=== PATIENT | male | born 1940 ===

== ENCOUNTER 2017-12-26 19:48 | Inpatient (IN) | payer MEDICARE ==
[2017-12-26 15:59] VITALS: BMI 29.2
[2017-12-26] MEDS ORDERED: Iodixanol 320 MG/ML 200 ML BOTTLE IV ONE (20:01)
[2017-12-26] MEDS ORDERED: Midazolam 2 MG/2 ML VIAL ONE (20:02)
[2017-12-26] MEDS ORDERED: DiphenhydrAMINE 50 mg/ml Inj ONE (20:05)
[2017-12-26] MEDS: Sodium Chloride 0.9% 1,000 ML IV SCH (21:46)
[2017-12-26 22:45] LABS: CK-MB 1.9 ng/mL (0.0-3.38); TROPONIN I 0.493 ng/mL (0.00-0.120)
--- NOTE | 2017-12-26 22:59 | CP.PCM.CON ---
History of Present Illness - History of Present Illness History of Present Illness: 77 M with h/o htn, CVA with slight right side weakness in 2017, h/o syncopal episodes while on beta heriberto, h/o prostate cancer on 3 month cystoscopy, presented to the [place] ER with c/o chest pain, with improved initially then got worse, repeat EKG showed inferior STEMI, patient transferred to the [facility], RCA 99% obstructed, and PCI done, patient also has some LAD and circumflex disease, normal EF. Patient has been pain and symptom free post cath , being observed in ICU. PMH as above PSH, appendicectomy, prostatectomy, hernia repair on left side Allergies PCN Social lives with family denies smoking, alcohol, illicit drugs Family history not contributory. Meds reviewed Review of Systems - Review of Systems All systems: reviewed and no additional remarkable complaints except (HPI) Past Patient History - Past Medical History & Family History Past Medical History?: Yes - Past Social History Smoking Status: Former Smoker Alcohol: Other (denies) Drugs: Denies Home Situation {Lives}: With Family - CARDIAC Hx Hypercholesterolemia: Yes Hx Hypertension: Yes - PULMONARY Hx Respiratory Disorders: No - NEUROLOGICAL Hx Neurological Disorder: No HX Cerebrovascular Accident: Yes (09/22/16) Hx Syncope: Yes (more than 3 months ago) Other/Comment: CVA 09/22/16 - HEENT Hx HEENT Problems: No Hx Glaucoma: Yes - RENAL Hx Chronic Kidney Disease: No Hx Kidney Stones: Yes (20-30 years ago) - ENDOCRINE/METABOLIC Hx Endocrine Disorders: No - HEMATOLOGICAL/ONCOLOGICAL Hx Anemia: Yes Hx Human Immunodeficiency Virus (HIV): No - INTEGUMENTARY Hx Dermatological Problems: No - MUSCULOSKELETAL/RHEUMATOLOGICAL Hx Falls: Yes - GASTROINTESTINAL Hx Gastrointestinal Disorders: No Other/Comment: Hernia surgery 3-4 yrs ago - GENITOURINARY/GYNECOLOGICAL Hx Prostate Cancer: Yes - PSYCHIATRIC Hx Psychophysiologic Disorder: No Hx Substance Use: No - SURGICAL HISTORY Hx Appendectomy: Yes - ANESTHESIA Hx Anesthesia: Yes Hx Anesthesia Reactions: No Hx Malignant Hyperthermia: No Meds Allergies/Adverse Reactions: Allergies Allergy/AdvReac Type Severity Reaction Status Date / Time Penicillins Allergy HEADACHE Verified 12/26/17 16:00 - Medications Medications: Current Medications Aspirin (Aspirin) 325 mg PO DAILY [facility] Carvedilol (Coreg) 6.25 mg PO BID [facility] Clopidogrel Bisulfate (Plavix) 75 mg PO DAILY [facility] Sodium Chloride (Sodium Chloride 0.9%) 1,000 mls @ 100 mls/hr IV .Q10H [facility] Last Admin: 12/26/17 21:46 Dose: 100 mls/hr Rosuvastatin Calcium (Crestor) 20 mg PO HS [facility] Last Admin: 12/26/17 21:46 Dose: 20 mg Physical Exam - Additional Findings Additional findings: * HEENT JB * Neck supple * Chest Clear * CVS Regular, no gallop, or rub * PA soft, nt, bs present * Ext, cath site on right no swelling or oozing, pulses, present b/l * [employer] alert oriented x3 no fnd * Skin normal turgor. Results - Labs Labs: Laboratory Results - last 24 hr 12/26/17 22:01 Total Creatine Kinase 59 Assessment & Plan - Assessment and Plan (Free Text) Assessment: * Inferior STEMI, s/p PCI in RCA, has some LAD and Cx disease, normal EF. * H/o CVA * H/o HTN * H/o prostate CA on treatment. Plan: * Guideline directed cardioprotective meds * ASA, plavix, coreg, crestor * Echo, lipid panel, labs * See orders for detail.
[2017-12-27 06:33] LABS: ALB/GLOB RATIO 1.5 (1.0-2.1); ALBUMIN 3.6 g/dL (3.5-5.0); ALT/SGPT 39 U/L (21-72); AST/SGOT 23 U/L (17-59); BLOOD UREA NITROGEN 18 mg/dL (9-20); CALCIUM 8.3 mg/dl (8.6-10.4); GFR AFRICAN-AMERICAN > 60; GFR NON-AFRICAN AMERICAN 58; HDL CHOLESTEROL 24 mg/dL (30-70)
[2017-12-27 06:35] LABS: BASO % 0.7 % (0.0-2.0); EOS # 0.2 K/uL (0.0-0.7); EOS % 3.8 % (0.0-4.0); HEMOGLOBIN 12.2 g/dL (12.0-18.0); LYMPH # 0.9 K/uL (1.0-4.3); LYMPH % 16.6 % (20.0-40.0); MEAN CELL VOLUME 87.1 fL (80.0-94.0); MEAN CORPUSCULAR HEMOGLOBIN 28.6 pg (27.0-31.0); MEAN CORPUSCULAR HGB CONC 32.9 g/dL (33.0-37.0); MEAN PLATELET VOLUME 8.9 fL (7.2-11.7); MONO # 0.5 K/uL (0.0-0.8); MONO % 9.2 % (0.0-10.0); NEUT # 3.6 K/uL (1.8-7.0); NEUT % 69.7 % (50.0-75.0); NRBC % 0.2 % (0.0-2.0); RBC 4.26 Mil/uL (4.40-5.90); RED CELL DISTRIBUTION WIDTH 15.7 % (11.5-14.5); WHITE BLOOD COUNT 5.2 K/uL (4.8-10.8)
[2017-12-27 06:43] LABS: LDL CHOLESTEROL 74 mg/dL (0-129)
[2017-12-27 06:53] LABS: CK-MB 2.18 ng/mL (0.0-3.38)
--- NOTE | 2017-12-27 07:38 | CP.CCUPN ---
<Yara Owens - Last Filed: 12/27/17 12:44> CCU Subjective - Physician Review Subjective (Free Text): Patient seen and examined at bedside. No acute complaints. Patient is tolerating diet, OOB to chair. CCU Objective - Vital Signs / Intake & Output Vital Signs (Last 4 hours): Vital Signs Temp Pulse Resp BP Pulse Ox 12/27/17 07:00 68 12 87 L 12/27/17 06:51 76 13 141/76 100 12/27/17 06:00 81 16 99 12/27/17 05:51 69 11 L 151/70 H 99 12/27/17 05:00 75 14 100 12/27/17 04:51 66 16 136/60 99 12/27/17 04:19 64 14 136/60 12/27/17 04:00 98.2 F 71 11 L 100 12/27/17 03:49 67 13 150/70 99 Intake and Output (Last 8hrs): Intake & Output 12/26/17 12/27/17 12/27/17 22:59 06:59 14:59 Intake Total 400 850 100 Output Total 300 600 Balance 100 250 100 Weight 197 lb 15.602 oz 196 lb 3.382 oz Intake: Intake, IV Amount 100 800 100 Left Antecubital 100 800 100 Oral 300 50 Output: Urine 300 600 Urine, Voided 300 600 Other: Voiding Method Urinal - Physical Exam Head: Positive for: Atraumatic, Normocephalic, Ecchymosis Extroacular Muscles: Positive for: EOMI Conjunctiva: Positive for: Normal Mouth: Positive for: Moist Mucous Membranes Neck: Positive for: Normal Range of Motion Respiratory/Chest: Positive for: Clear to Auscultation Cardiovascular: Positive for: Regular Rate and Rhythm Abdomen: Positive for: Normal Bowel Sounds. Negative for: Tenderness, Distention Upper Extremity: Positive for: Normal Inspection, NORMAL PULSES, Neurovascularly Intact, Capillary Refill < 2s Lower Extremity: Positive for: Normal Inspection, NORMAL PULSES, Neurovascularly Intact, Capillary Refill < 2 s Neurological: Positive for: GCS=15, CN II-XII Intact Skin: Positive for: Warm, Dry Psychiatric: Positive for: Alert, Oriented x 3, Normal Concentration - Medications Active Medications: Active Medications Generic Name Dose Route Start Last Admin Trade Name Freq PRN Reason Stop Dose Admin Acetaminophen 650 mg 12/27/17 07:34 Tylenol 325mg Tab PO Q6 PRN Pain, Mild (1-3) Aspirin 81 mg 12/27/17 10:00 Aspirin PO DAILY [facility] Carvedilol 6.25 mg 12/27/17 10:00 Coreg PO BID [facility] Clopidogrel Bisulfate 75 mg 12/27/17 10:00 Plavix PO DAILY [facility] Heparin Sodium (Porcine) 5,000 units 12/27/17 14:00 Heparin SC Q8 [facility] Sodium Chloride 1,000 mls @ 100 mls/hr 12/26/17 21:30 12/26/17 21:46 Sodium Chloride 0.9% IV 12/27/17 13:31 100 mls/hr .Q10H [facility] Administration Pantoprazole Sodium 40 mg 12/27/17 10:00 Protonix Ec Tab PO DAILY [facility] Rosuvastatin Calcium 20 mg 12/26/17 22:00 12/26/17 21:46 Crestor PO 20 mg HS [facility]A Administration - Patient Studies Lab Studies: Lab Studies 12/27/17 12/27/17 12/26/17 Range/Units 06:24 06:14 22:01 WBC 5.2 (4.8-10.8) K/uL RBC 4.26 L (4.40-5.90) Mil/uL Hgb 12.2 (12.0-18.0) g/dL Hct 37.1 (35.0-51.0) % MCV 87.1 (80.0-94.0) fL MCH 28.6 (27.0-31.0) pg MCHC 32.9 L (33.0-37.0) g/dL RDW 15.7 H (11.5-14.5) % Plt Count 188 (130-400) K/uL MPV 8.9 (7.2-11.7) fL Neut % (Auto) 69.7 (50.0-75.0) % Lymph % (Auto) 16.6 L (20.0-40.0) % Harris % (Auto) 9.2 (0.0-10.0) % Eos % (Auto) 3.8 (0.0-4.0) % Baso % (Auto) 0.7 (0.0-2.0) % Neut # (Auto) 3.6 (1.8-7.0) K/uL Lymph # (Auto) 0.9 L (1.0-4.3) K/uL Harris # (Auto) 0.5 (0.0-0.8) K/uL Eos # (Auto) 0.2 (0.0-0.7) K/uL Baso # (Auto) 0.0 (0.0-0.2) K/uL Sodium 142 (132-148) mmol/L Potassium 4.1 (3.6-5.2) mmol/L Chloride 108 H (98-107) mmol/L Carbon Dioxide 27 (22-30) mmol/L Anion Gap 12 (10-20) BUN 18 (9-20) mg/dL Creatinine 1.2 (0.8-1.5) mg/dL Est GFR ( Amer) > 60 Est GFR (Non-Af Amer) 58 Random Glucose 83 (75-110) mg/dL Calcium 8.3 L (8.6-10.4) mg/dl Total Bilirubin 0.7 (0.2-1.3) mg/dL AST 23 (17-59) U/L ALT 39 (21-72) U/L Alkaline Phosphatase 80 (38-126) U/L Total Creatine Kinase 59 (55-170) U/L CK-MB (Mass) 2.18 1.90 (0.0-3.38) ng/mL Troponin I 0.6540 H* 0.4930 H* (0.00-0.120) ng/mL Total Protein 5.9 L (6.3-8.3) g/dL Albumin 3.6 (3.5-5.0) g/dL Globulin 2.3 (2.2-3.9) gm/dL Albumin/Globulin Ratio 1.5 (1.0-2.1) Triglycerides 165 H (0-149) mg/dL Cholesterol 122 (0-199) mg/dL LDL Cholesterol Direct 74 (0-129) mg/dL HDL Cholesterol 24 L (30-70) mg/dL Laboratory Results - last 24 hr 12/26/17 12/27/17 12/27/17 22:01 06:14 06:24 WBC 5.2 RBC 4.26 L Hgb 12.2 Hct 37.1 MCV 87.1 MCH 28.6 MCHC 32.9 L RDW 15.7 H Plt Count 188 MPV 8.9 Neut % (Auto) 69.7 Lymph % (Auto) 16.6 L Harris % (Auto) 9.2 Eos % (Auto) 3.8 Baso % (Auto) 0.7 Neut # (Auto) 3.6 Lymph # (Auto) 0.9 L Harris # (Auto) 0.5 Eos # (Auto) 0.2 Baso # (Auto) 0.0 Sodium 142 Potassium 4.1 Chloride 108 H Carbon Dioxide 27 Anion Gap 12 BUN 18 Creatinine 1.2 Est GFR ( Amer) > 60 Est GFR (Non-Af Amer) 58 Random Glucose 83 Calcium 8.3 L Total Bilirubin 0.7 AST 23 ALT 39 Alkaline Phosphatase 80 Total Creatine Kinase 59 CK-MB (Mass) 1.90 2.18 Troponin I 0.4930 H* 0.6540 H* Total Protein 5.9 L Albumin 3.6 Globulin 2.3 Albumin/Globulin Ratio 1.5 Triglycerides 165 H Cholesterol 122 LDL Cholesterol Direct 74 HDL Cholesterol 24 L Critical Care Progress Note - Nutrition Nutrition: Nutrition Category Date Time Status Heart Healthy Diet [DIET] Diets 12/26/17 Breakfast Active Assessment/Plan - Assessment and Plan (Free Text) Assessment: This is a 77 year old male with PMHx of HTN, CVA with residual weakness, h/o syncopal episodes while on beta heriberto, h/o prostate cancer on 3 month cystoscopy, presented to the [place] ER with c/o chest pain, with improved initially then got worse, repeat EKG showed inferior STEMI. Patient also has LAD and Left Circumflex disease will need to have intervention performed in [place] 12/28/17. Plan: Neuro: GCS 15 A: Hx CVA with residual weakness Cardio: A: STEMI, inferior wall -- Dr. Troncoso - S/P PCI 100% RCA, with LAD and Left circumflex - Pending ECHO - Patient is to be transferred to [place] for PCI intervention 12/28/17 - Started ASA, Plavix, Coreg, Crestor Pulm: - No acute issues GI: - No acute issues : A: Hx Prostate Cancer Prophylaxis: - Pepcid - SCDs, Hep Q8H - PT Eval Disposition: Patient s/p cardiac cath with ARABELLA placement in RCA. Transfer to [place] 12/28/17 for PCI intervention. Patient will return to [facility]. Yara Etienne Dr., DO, PGY-1 <Renzo Zamarripa S - Last Filed: 12/27/17 17:56> CCU Objective - Vital Signs / Intake & Output Vital Signs (Last 4 hours): Vital Signs Pulse Resp BP Pulse Ox 12/27/17 17:51 73 14 130/58 L 12/27/17 17:00 72 14 12/27/17 16:00 67 18 99 12/27/17 15:51 69 16 152/68 H 99 12/27/17 15:00 67 16 100 12/27/17 14:51 71 17 141/55 L 100 12/27/17 14:00 68 16 100 Intake and Output (Last 8hrs): Intake & Output 12/27/17 12/27/17 12/27/17 06:59 14:59 22:59 Intake Total 850 1060 Output Total 600 520 Balance 250 540 Weight 196 lb 3.382 oz Intake: Intake, IV Amount 800 600 Left Antecubital 800 600 Oral 50 460 Output: Urine 600 520 Urine, Voided 600 520 Stool 0 Emesis 0 Other: # Bowel Movements 0 - Medications Active Medications: Active Medications Generic Name Dose Route Start Last Admin Trade Name Freq PRN Reason Stop Dose Admin Acetaminophen 650 mg 12/27/17 07:34 Tylenol 325mg Tab PO Q6 PRN Pain, Mild (1-3) Aspirin 81 mg 12/27/17 11:30 12/27/17 11:00 Ecotrin PO Not Given DAILY [facility] Carvedilol 6.25 mg 12/27/17 10:00 12/27/17 11:07 Coreg PO 6.25 mg BID [facility] Administration Clopidogrel Bisulfate 75 mg 12/28/17 10:00 Plavix PO DAILY [facility] Famotidine 20 mg 12/27/17 10:00 12/27/17 11:07 Pepcid PO 20 mg DAILY [facility] Administration Heparin Sodium (Porcine) 5,000 units 12/27/17 14:00 12/27/17 15:08 Heparin SC 5,000 units Q8 [facility] Administration Metoprolol Succinate 12.5 mg 12/28/17 10:00 Toprol Xl PO DAILY [facility] Rosuvastatin Calcium 20 mg 12/26/17 22:00 12/26/17 21:46 Crestor PO 20 mg HS [facility] Administration - Patient Studies Lab Studies: Lab Studies 12/27/17 12/27/17 12/27/17 Range/Units 06:24 06:24 06:14 WBC 5.2 (4.8-10.8) K/uL RBC 4.26 L (4.40-5.90) Mil/uL Hgb 12.2 (12.0-18.0) g/dL Hct 37.1 (35.0-51.0) % MCV 87.1 (80.0-94.0) fL MCH 28.6 (27.0-31.0) pg MCHC 32.9 L (33.0-37.0) g/dL RDW 15.7 H (11.5-14.5) % Plt Count 188 (130-400) K/uL MPV 8.9 (7.2-11.7) fL Neut % (Auto) 69.7 (50.0-75.0) % Lymph % (Auto) 16.6 L (20.0-40.0) % Harris % (Auto) 9.2 (0.0-10.0) % Eos % (Auto) 3.8 (0.0-4.0) % Baso % (Auto) 0.7 (0.0-2.0) % Neut # (Auto) 3.6 (1.8-7.0) K/uL Lymph # (Auto) 0.9 L (1.0-4.3) K/uL Harris # (Auto) 0.5 (0.0-0.8) K/uL Eos # (Auto) 0.2 (0.0-0.7) K/uL Baso # (Auto) 0.0 (0.0-0.2) K/uL Sodium 142 (132-148) mmol/L Potassium 4.1 (3.6-5.2) mmol/L Chloride 108 H (98-107) mmol/L Carbon Dioxide 27 (22-30) mmol/L Anion Gap 12 (10-20) BUN 18 (9-20) mg/dL Creatinine 1.2 (0.8-1.5) mg/dL Est GFR ( Amer) > 60 Est GFR (Non-Af Amer) 58 Random Glucose 83 (75-110) mg/dL Hemoglobin A1c 5.6 (4.2-6.5) % Calcium 8.3 L (8.6-10.4) mg/dl Total Bilirubin 0.7 (0.2-1.3) mg/dL AST 23 (17-59) U/L ALT 39 (21-72) U/L Alkaline Phosphatase 80 (38-126) U/L Total Creatine Kinase (55-170) U/L CK-MB (Mass) 2.18 (0.0-3.38) ng/mL Troponin I 0.6540 H* (0.00-0.120) ng/mL Total Protein 5.9 L (6.3-8.3) g/dL Albumin 3.6 (3.5-5.0) g/dL Globulin 2.3 (2.2-3.9) gm/dL Albumin/Globulin Ratio 1.5 (1.0-2.1) Triglycerides 165 H (0-149) mg/dL Cholesterol 122 (0-199) mg/dL LDL Cholesterol Direct 74 (0-129) mg/dL HDL Cholesterol 24 L (30-70) mg/dL 12/26/17 Range/Units 22:01 WBC (4.8-10.8) K/uL RBC (4.40-5.90) Mil/uL Hgb (12.0-18.0) g/dL Hct (35.0-51.0) % MCV (80.0-94.0) fL MCH (27.0-31.0) pg MCHC (33.0-37.0) g/dL RDW (11.5-14.5) % Plt Count (130-400) K/uL MPV (7.2-11.7) fL Neut % (Auto) (50.0-75.0) % Lymph % (Auto) (20.0-40.0) % Harris % (Auto) (0.0-10.0) % Eos % (Auto) (0.0-4.0) % Baso % (Auto) (0.0-2.0) % Neut # (Auto) (1.8-7.0) K/uL Lymph # (Auto) (1.0-4.3) K/uL Harris # (Auto) (0.0-0.8) K/uL Eos # (Auto) (0.0-0.7) K/uL Baso # (Auto) (0.0-0.2) K/uL Sodium (132-148) mmol/L Potassium (3.6-5.2) mmol/L Chloride (98-107) mmol/L Carbon Dioxide (22-30) mmol/L Anion Gap (10-20) BUN (9-20) mg/dL Creatinine (0.8-1.5) mg/dL Est GFR ( Amer) Est GFR (Non-Af Amer) Random Glucose (75-110) mg/dL Hemoglobin A1c (4.2-6.5) % Calcium (8.6-10.4) mg/dl Total Bilirubin (0.2-1.3) mg/dL AST (17-59) U/L ALT (21-72) U/L Alkaline Phosphatase (38-126) U/L Total Creatine Kinase 59 (55-170) U/L CK-MB (Mass) 1.90 (0.0-3.38) ng/mL Troponin I 0.4930 H* (0.00-0.120) ng/mL Total Protein (6.3-8.3) g/dL Albumin (3.5-5.0) g/dL Globulin (2.2-3.9) gm/dL Albumin/Globulin Ratio (1.0-2.1) Triglycerides (0-149) mg/dL Cholesterol (0-199) mg/dL LDL Cholesterol Direct (0-129) mg/dL HDL Cholesterol (30-70) mg/dL Laboratory Results - last 24 hr 12/26/17 12/27/17 12/27/17 22:01 06:14 06:24 WBC 5.2 RBC 4.26 L Hgb 12.2 Hct 37.1 MCV 87.1 MCH 28.6 MCHC 32.9 L RDW 15.7 H Plt Count 188 MPV 8.9 Neut % (Auto) 69.7 Lymph % (Auto) 16.6 L Harris % (Auto) 9.2 Eos % (Auto) 3.8 Baso % (Auto) 0.7 Neut # (Auto) 3.6 Lymph # (Auto) 0.9 L Harris # (Auto) 0.5 Eos # (Auto) 0.2 Baso # (Auto) 0.0 Sodium 142 Potassium 4.1 Chloride 108 H Carbon Dioxide 27 Anion Gap 12 BUN 18 Creatinine 1.2 Est GFR ( Amer) > 60 Est GFR (Non-Af Amer) 58 Random Glucose 83 Hemoglobin A1c Calcium 8.3 L Total Bilirubin 0.7 AST 23 ALT 39 Alkaline Phosphatase 80 Total Creatine Kinase 59 CK-MB (Mass) 1.90 2.18 Troponin I 0.4930 H* 0.6540 H* Total Protein 5.9 L Albumin 3.6 Globulin 2.3 Albumin/Globulin Ratio 1.5 Triglycerides 165 H Cholesterol 122 LDL Cholesterol Direct 74 HDL Cholesterol 24 L 12/27/17 06:24 WBC RBC Hgb Hct MCV MCH MCHC RDW Plt Count MPV Neut % (Auto) Lymph % (Auto) Harris % (Auto) Eos % (Auto) Baso % (Auto) Neut # (Auto) Lymph # (Auto) Harris # (Auto) Eos # (Auto) Baso # (Auto) Sodium Potassium Chloride Carbon Dioxide Anion Gap BUN Creatinine Est GFR ( Amer) Est GFR (Non-Af Amer) Random Glucose Hemoglobin A1c 5.6 Calcium Total Bilirubin AST ALT Alkaline Phosphatase Total Creatine Kinase CK-MB (Mass) Troponin I Total Protein Albumin Globulin Albumin/Globulin Ratio Triglycerides Cholesterol LDL Cholesterol Direct HDL Cholesterol Critical Care Progress Note - Nutrition Nutrition: Nutrition Category Date Time Status Heart Healthy Diet [DIET] Diets 12/26/17 Breakfast Active Heart Healthy Diet [DIET] Diets 12/28/17 Dinner Active NPO Diet [DIET] Diets 12/28/17 Breakfast Active Attending/Attestation - Attestation I have personally seen and examined this patient.: Yes I have fully participated in the care of the patient.: Yes I have reviewed all pertinent clinical information: Yes Notes (Text): 12/27/17 17:55 Patient seen and examined in the intensive care unit. Status post cardiac cath 100% occlusion of RCA and stent placement patient for transfer to [place] tomorrow for PCI of circumflex and LAD
[2017-12-27] MEDS: Sodium Chloride 0.9% 1,000 ML IV SCH (08:00)
--- NOTE | 2017-12-27 12:28 | CP.PCM.HP ---
History of Present Illness - History of Present Illness History of Present Illness: Patient 77 y/o gentleman with hx of CAD, s/p CVA with minimal residual, ca prostate. The patient presented in PMD office with hx of precordial CP x 2 days , SOB, anxiety, palpitation. The patient was transferred to ER by EMS. He presented with acute coronary syndrome. He underwent to cardiac cath that reveled a severe stenosis. At present in CCU. Patient will need further dx and rx intervention. Case discussed with office specialist. Present on Admission - Present on Admission Any Indicators Present on Admission: No Review of Systems - Constitutional Constitutional: As Per HPI - EENT Eyes: As Per HPI Nose/Mouth/Throat: As Per HPI - Cardiovascular Cardiovascular: Chest Pain, Chest Pain at Rest, Chest Pain with Activity, Dyspnea, Rapid Heart Rate - Respiratory Respiratory: Dyspnea on Exertion - Gastrointestinal Gastrointestinal: As Per HPI - Genitourinary Genitourinary: As Per HPI - Musculoskeletal Musculoskeletal: As Per HPI - Neurological Neurological: As Per HPI - Psychiatric Psychiatric: As Per HPI - Endocrine Endocrine: As Per HPI Past Patient History - Past Medical History & Family History Past Medical History?: Yes - Past Social History Smoking Status: Former Smoker Alcohol: Other (denies) Drugs: Denies Home Situation {Lives}: With Family - CARDIAC Hx Hypercholesterolemia: Yes Hx Hypertension: Yes - PULMONARY Hx Respiratory Disorders: No - NEUROLOGICAL Hx Neurological Disorder: No HX Cerebrovascular Accident: Yes (09/22/16) Hx Syncope: Yes (more than 3 months ago) Other/Comment: CVA 09/22/16 - HEENT Hx HEENT Problems: No Hx Glaucoma: Yes - RENAL Hx Chronic Kidney Disease: No Hx Kidney Stones: Yes (20-30 years ago) - ENDOCRINE/METABOLIC Hx Endocrine Disorders: No - HEMATOLOGICAL/ONCOLOGICAL Hx Anemia: Yes Hx Human Immunodeficiency Virus (HIV): No - INTEGUMENTARY Hx Dermatological Problems: No - MUSCULOSKELETAL/RHEUMATOLOGICAL Hx Falls: Yes - GASTROINTESTINAL Hx Gastrointestinal Disorders: No Other/Comment: Hernia surgery 3-4 yrs ago - GENITOURINARY/GYNECOLOGICAL Hx Prostate Cancer: Yes - PSYCHIATRIC Hx Psychophysiologic Disorder: No Hx Substance Use: No - SURGICAL HISTORY Hx Appendectomy: Yes - ANESTHESIA Hx Anesthesia: Yes Hx Anesthesia Reactions: No Hx Malignant Hyperthermia: No Meds Allergies/Adverse Reactions: Allergies Allergy/AdvReac Type Severity Reaction Status Date / Time Penicillins Allergy HEADACHE Verified 12/26/17 16:00 Physical Exam - Constitutional Appears: Chronically Ill - Head Exam Head Exam: ATRAUMATIC, NORMAL INSPECTION, NORMOCEPHALIC - Eye Exam Eye Exam: Normal appearance - ENT Exam ENT Exam: Mucous Membranes Moist - Respiratory Exam Respiratory Exam: Clear to Auscultation Bilateral - Cardiovascular Exam Cardiovascular Exam: REGULAR RHYTHM, +S1, +S2 - GI/Abdominal Exam GI & Abdominal Exam: Normal Bowel Sounds - Neurological Exam Neurological exam: Alert, CN II-XII Intact, Oriented x3, Reflexes Normal - Psychiatric Exam Psychiatric exam: Normal Affect - Skin Skin Exam: Normal Color Results - Vital Signs Recent Vital Signs: Last Vital Signs Temp 98.3 F 12/27/17 07:35 Pulse 67 12/27/17 12:00 Resp 13 12/27/17 12:00 BP 157/70 H 12/27/17 09:52 Pulse Ox 99 12/27/17 12:00 - Labs Result Diagrams: 12/27/17 06:24 12/27/17 06:14 Labs: Laboratory Results - last 24 hr 12/26/17 12/27/17 12/27/17 22:01 06:14 06:24 WBC 5.2 RBC 4.26 L Hgb 12.2 Hct 37.1 MCV 87.1 MCH 28.6 MCHC 32.9 L RDW 15.7 H Plt Count 188 MPV 8.9 Neut % (Auto) 69.7 Lymph % (Auto) 16.6 L Warren % (Auto) 9.2 Eos % (Auto) 3.8 Baso % (Auto) 0.7 Neut # (Auto) 3.6 Lymph # (Auto) 0.9 L Warren # (Auto) 0.5 Eos # (Auto) 0.2 Baso # (Auto) 0.0 Sodium 142 Potassium 4.1 Chloride 108 H Carbon Dioxide 27 Anion Gap 12 BUN 18 Creatinine 1.2 Est GFR ( Amer) > 60 Est GFR (Non-Af Amer) 58 Random Glucose 83 Hemoglobin A1c Calcium 8.3 L Total Bilirubin 0.7 AST 23 ALT 39 Alkaline Phosphatase 80 Total Creatine Kinase 59 CK-MB (Mass) 1.90 2.18 Troponin I 0.4930 H* 0.6540 H* Total Protein 5.9 L Albumin 3.6 Globulin 2.3 Albumin/Globulin Ratio 1.5 Triglycerides 165 H Cholesterol 122 LDL Cholesterol Direct 74 HDL Cholesterol 24 L 12/27/17 06:24 WBC RBC Hgb Hct MCV MCH MCHC RDW Plt Count MPV Neut % (Auto) Lymph % (Auto) Warren % (Auto) Eos % (Auto) Baso % (Auto) Neut # (Auto) Lymph # (Auto) Warren # (Auto) Eos # (Auto) Baso # (Auto) Sodium Potassium Chloride Carbon Dioxide Anion Gap BUN Creatinine Est GFR ( Amer) Est GFR (Non-Af Amer) Random Glucose Hemoglobin A1c 5.6 Calcium Total Bilirubin AST ALT Alkaline Phosphatase Total Creatine Kinase CK-MB (Mass) Troponin I Total Protein Albumin Globulin Albumin/Globulin Ratio Triglycerides Cholesterol LDL Cholesterol Direct HDL Cholesterol Assessment & Plan (1) Coronary arteriosclerosis Status: Acute (2) STEMI (ST elevation myocardial infarction) Status: Acute (3) Hypertension Status: Acute (4) Combined hyperlipidemia Status: Acute - Assessment and Plan (Free Text) Plan: Will follow cardio consult Continue present rx.
--- NOTE | 2017-12-27 17:27 | CP.PCM.CON ---
History of Present Illness - History of Present Illness History of Present Illness: Patient with history of CAD, PAD, CVA and hyperlipidemia who was in [place] when he started having chest pain. He ignored and on the day of admission he worked in the yard and chest pain got worse. Hid family forced him to [facility] eto ER at [place] and where he was treated accordingly. He had EKG with dynamic changes and was transferred for cath and intervention at [facility]. He has double vessel disease and angioplasty with Stent of the large and dominant RCA was performed. Past Patient History - Past Medical History & Family History Past Medical History?: Yes - Past Social History Smoking Status: Former Smoker Alcohol: Other (denies) Drugs: Denies Home Situation {Lives}: With Family - CARDIAC Hx Cardiac Disorders: Yes (CABG, CAD) Hx Hypercholesterolemia: Yes Hx Hypertension: Yes - PULMONARY Hx Respiratory Disorders: No - NEUROLOGICAL HX Cerebrovascular Accident: Yes (09/22/16) - HEENT Hx HEENT Problems: No Hx Glaucoma: Yes - RENAL Hx Chronic Kidney Disease: No Hx Kidney Stones: Yes (20-30 years ago) - ENDOCRINE/METABOLIC Hx Endocrine Disorders: No - HEMATOLOGICAL/ONCOLOGICAL Hx Anemia: Yes Hx Human Immunodeficiency Virus (HIV): No - INTEGUMENTARY Hx Dermatological Problems: No - MUSCULOSKELETAL/RHEUMATOLOGICAL Hx Falls: Yes - GASTROINTESTINAL Hx Gastrointestinal Disorders: No Other/Comment: Hernia surgery 3-4 yrs ago - GENITOURINARY/GYNECOLOGICAL Hx Prostate Cancer: Yes - PSYCHIATRIC Hx Psychophysiologic Disorder: No Hx Substance Use: No - SURGICAL HISTORY Hx Appendectomy: Yes - ANESTHESIA Hx Anesthesia: Yes Hx Anesthesia Reactions: No Hx Malignant Hyperthermia: No Meds Allergies/Adverse Reactions: Allergies Allergy/AdvReac Type Severity Reaction Status Date / Time Penicillins Allergy HEADACHE Verified 12/26/17 16:00 - Medications Medications: Current Medications Acetaminophen (Tylenol 325mg Tab) 650 mg PO Q6 PRN PRN Reason: Pain, Mild (1-3) Aspirin (Ecotrin) 81 mg PO DAILY [facility] Last Admin: 12/27/17 11:00 Dose: Not Given Carvedilol (Coreg) 6.25 mg PO BID [facility] Last Admin: 12/27/17 11:07 Dose: 6.25 mg Clopidogrel Bisulfate (Plavix) 75 mg PO DAILY [facility] Last Admin: 12/27/17 11:07 Dose: 75 mg Famotidine (Pepcid) 20 mg PO DAILY [facility] Last Admin: 12/27/17 11:07 Dose: 20 mg Heparin Sodium (Porcine) (Heparin) 5,000 units SC Q8 [facility] Last Admin: 12/27/17 15:08 Dose: 5,000 units Rosuvastatin Calcium (Crestor) 20 mg PO HS [facility] Last Admin: 12/26/17 21:46 Dose: 20 mg Physical Exam - Head Exam Head Exam: NORMOCEPHALIC - Neck Exam Neck exam: Positive for: Normal Inspection - Respiratory Exam Respiratory Exam: NORMAL BREATHING PATTERN - Cardiovascular Exam Cardiovascular Exam: REGULAR RHYTHM - GI/Abdominal Exam GI & Abdominal Exam: Soft - Back Exam Back exam: NORMAL INSPECTION - Neurological Exam Neurological exam: Alert, Oriented x3 Results - Vital Signs Recent Vital Signs: Last Vital Signs Temp 98.3 F 12/27/17 07:35 Pulse 67 12/27/17 12:00 Resp 13 12/27/17 12:00 BP 157/70 H 12/27/17 09:52 Pulse Ox 99 12/27/17 12:00 - Labs Result Diagrams: 12/27/17 06:24 12/27/17 06:14 Labs: Laboratory Results - last 24 hr 12/26/17 12/27/17 12/27/17 22:01 06:14 06:24 WBC 5.2 RBC 4.26 L Hgb 12.2 Hct 37.1 MCV 87.1 MCH 28.6 MCHC 32.9 L RDW 15.7 H Plt Count 188 MPV 8.9 Neut % (Auto) 69.7 Lymph % (Auto) 16.6 L Norman % (Auto) 9.2 Eos % (Auto) 3.8 Baso % (Auto) 0.7 Neut # (Auto) 3.6 Lymph # (Auto) 0.9 L Norman # (Auto) 0.5 Eos # (Auto) 0.2 Baso # (Auto) 0.0 Sodium 142 Potassium 4.1 Chloride 108 H Carbon Dioxide 27 Anion Gap 12 BUN 18 Creatinine 1.2 Est GFR ( Amer) > 60 Est GFR (Non-Af Amer) 58 Random Glucose 83 Hemoglobin A1c Calcium 8.3 L Total Bilirubin 0.7 AST 23 ALT 39 Alkaline Phosphatase 80 Total Creatine Kinase 59 CK-MB (Mass) 1.90 2.18 Troponin I 0.4930 H* 0.6540 H* Total Protein 5.9 L Albumin 3.6 Globulin 2.3 Albumin/Globulin Ratio 1.5 Triglycerides 165 H Cholesterol 122 LDL Cholesterol Direct 74 HDL Cholesterol 24 L 12/27/17 06:24 WBC RBC Hgb Hct MCV MCH MCHC RDW Plt Count MPV Neut % (Auto) Lymph % (Auto) Norman % (Auto) Eos % (Auto) Baso % (Auto) Neut # (Auto) Lymph # (Auto) Norman # (Auto) Eos # (Auto) Baso # (Auto) Sodium Potassium Chloride Carbon Dioxide Anion Gap BUN Creatinine Est GFR ( Amer) Est GFR (Non-Af Amer) Random Glucose Hemoglobin A1c 5.6 Calcium Total Bilirubin AST ALT Alkaline Phosphatase Total Creatine Kinase CK-MB (Mass) Troponin I Total Protein Albumin Globulin Albumin/Globulin Ratio Triglycerides Cholesterol LDL Cholesterol Direct HDL Cholesterol Assessment & Plan (1) Combined hyperlipidemia Assessment and Plan: Continue lipid lowering agents. Status: Acute (2) STEMI (ST elevation myocardial infarction) Assessment and Plan: Successful PTCA/Stent of RCA. He has double vessel disease. Plans for PCI of RCA in AM. Discussed with patient, family and resident. Continue DAPT. Status: Acute (3) Cerebrovascular accident Assessment and Plan: Monitor. Risk of DAPT were discussed with family. Status: Acute
[2017-12-28 06:11] LABS: BASO % 0.6 % (0.0-2.0); EOS # 0.2 K/uL (0.0-0.7); EOS % 3.2 % (0.0-4.0); HEMOGLOBIN 12.5 g/dL (12.0-18.0); LYMPH # 0.8 K/uL (1.0-4.3); LYMPH % 13.3 % (20.0-40.0); MEAN CELL VOLUME 86.5 fL (80.0-94.0); MEAN CORPUSCULAR HEMOGLOBIN 29.2 pg (27.0-31.0); MEAN CORPUSCULAR HGB CONC 33.7 g/dL (33.0-37.0); MONO # 0.7 K/uL (0.0-0.8); MONO % 10.8 % (0.0-10.0); NEUT # 4.4 K/uL (1.8-7.0); NEUT % 72.1 % (50.0-75.0); RBC 4.29 Mil/uL (4.40-5.90); RED CELL DISTRIBUTION WIDTH 14.9 % (11.5-14.5); WHITE BLOOD COUNT 6.1 K/uL (4.8-10.8)
[2017-12-28 06:31] LABS: ALB/GLOB RATIO 1.4 (1.0-2.1); ALBUMIN 3.7 g/dL (3.5-5.0); ALT/SGPT 29 U/L (21-72); AST/SGOT 28 U/L (17-59); BLOOD UREA NITROGEN 20 mg/dL (9-20); CALCIUM 8.6 mg/dl (8.6-10.4); GFR AFRICAN-AMERICAN > 60; GFR NON-AFRICAN AMERICAN > 60
[2017-12-28] MEDS: Metoprolol Succinate 12.5 mg XL Tab PO SCH (10:00)
--- NOTE | 2017-12-28 11:11 | CP.CCUPN ---
<Yara Owens - Last Filed: 12/28/17 11:09> CCU Subjective - Physician Review Subjective (Free Text): Patient seen and examined at bedside. No acute complaints. Patient is to be transferred to [place] for PCI placement, will return to [facility]. CCU Objective - Vital Signs / Intake & Output Vital Signs (Last 4 hours): Vital Signs Pulse Resp BP Pulse Ox 12/28/17 08:00 68 15 97 12/28/17 07:52 86 11 L 160/75 H 98 Intake and Output (Last 8hrs): Intake & Output 12/27/17 12/28/17 12/28/17 22:59 06:59 14:59 Intake Total 690 0 0 Output Total 1020 1100 200 Balance -330 -1100 -200 Weight 190 lb 4.143 oz Intake: Intake, IV Amount 100 Left Antecubital 100 Oral 590 0 0 Output: Urine 1020 1100 200 Urine, Voided 1020 1100 200 Stool 0 Emesis 0 0 Other: # Bowel Movements 0 1 - Physical Exam Head: Positive for: Atraumatic, Normocephalic, Ecchymosis Extroacular Muscles: Positive for: EOMI Conjunctiva: Positive for: Normal Mouth: Positive for: Moist Mucous Membranes Neck: Positive for: Normal Range of Motion Respiratory/Chest: Positive for: Clear to Auscultation Cardiovascular: Positive for: Regular Rate and Rhythm Abdomen: Positive for: Normal Bowel Sounds. Negative for: Tenderness, Distention Upper Extremity: Positive for: Normal Inspection, NORMAL PULSES, Neurovascularly Intact, Capillary Refill < 2s Lower Extremity: Positive for: Normal Inspection, NORMAL PULSES, Neurovascularly Intact, Capillary Refill < 2 s Neurological: Positive for: GCS=15, CN II-XII Intact Skin: Positive for: Warm, Dry Psychiatric: Positive for: Alert, Oriented x 3, Normal Concentration - Medications Active Medications: Active Medications Generic Name Dose Route Start Last Admin Trade Name Freq PRN Reason Stop Dose Admin Acetaminophen 650 mg 12/27/17 07:34 Tylenol 325mg Tab PO Q6 PRN Pain, Mild (1-3) Aspirin 81 mg 12/27/17 11:30 12/27/17 11:00 Ecotrin PO Not Given DAILY [facility] Carvedilol 6.25 mg 12/27/17 10:00 12/27/17 18:08 Coreg PO 6.25 mg BID [facility] Administration Clopidogrel Bisulfate 75 mg 12/28/17 10:00 Plavix PO DAILY [facility] Famotidine 20 mg 12/27/17 10:00 12/27/17 11:07 Pepcid PO 20 mg DAILY [facility] Administration Heparin Sodium (Porcine) 5,000 units 12/27/17 14:00 12/27/17 21:33 Heparin SC 5,000 units Q8 [facility] Administration Metoprolol Succinate 12.5 mg 12/28/17 10:00 Toprol Xl PO DAILY [facility] Rosuvastatin Calcium 20 mg 12/26/17 22:00 12/27/17 21:33 Crestor PO 20 mg HS [facility] Administration - Patient Studies Lab Studies: Microbiology Studies 12/26/17 22:28 MRSA Culture (Admit) - Final Naris MRSA NOT DETECTED Lab Studies 12/28/17 12/28/17 Range/Units 05:56 05:56 WBC 6.1 (4.8-10.8) K/uL RBC 4.29 L (4.40-5.90) Mil/uL Hgb 12.5 (12.0-18.0) g/dL Hct 37.1 (35.0-51.0) % MCV 86.5 (80.0-94.0) fL MCH 29.2 (27.0-31.0) pg MCHC 33.7 (33.0-37.0) g/dL RDW 14.9 H (11.5-14.5) % Plt Count 175 (130-400) K/uL MPV 9.0 (7.2-11.7) fL Neut % (Auto) 72.1 (50.0-75.0) % Lymph % (Auto) 13.3 L (20.0-40.0) % Gooding % (Auto) 10.8 H (0.0-10.0) % Eos % (Auto) 3.2 (0.0-4.0) % Baso % (Auto) 0.6 (0.0-2.0) % Neut # (Auto) 4.4 (1.8-7.0) K/uL Lymph # (Auto) 0.8 L (1.0-4.3) K/uL Gooding # (Auto) 0.7 (0.0-0.8) K/uL Eos # (Auto) 0.2 (0.0-0.7) K/uL Baso # (Auto) 0.0 (0.0-0.2) K/uL Sodium 141 (132-148) mmol/L Potassium 4.0 (3.6-5.2) mmol/L Chloride 106 (98-107) mmol/L Carbon Dioxide 24 (22-30) mmol/L Anion Gap 15 (10-20) BUN 20 (9-20) mg/dL Creatinine 1.1 (0.8-1.5) mg/dL Est GFR ( Amer) > 60 Est GFR (Non-Af Amer) > 60 Random Glucose 94 (75-110) mg/dL Calcium 8.6 (8.6-10.4) mg/dl Phosphorus 3.2 (2.5-4.5) mg/dL Magnesium 1.9 (1.6-2.3) mg/dL Total Bilirubin 0.8 (0.2-1.3) mg/dL AST 28 (17-59) U/L ALT 29 (21-72) U/L Alkaline Phosphatase 81 (38-126) U/L Total Protein 6.4 (6.3-8.3) g/dL Albumin 3.7 (3.5-5.0) g/dL Globulin 2.7 (2.2-3.9) gm/dL Albumin/Globulin Ratio 1.4 (1.0-2.1) Laboratory Results - last 24 hr 12/28/17 12/28/17 05:56 05:56 WBC 6.1 RBC 4.29 L Hgb 12.5 Hct 37.1 MCV 86.5 MCH 29.2 MCHC 33.7 RDW 14.9 H Plt Count 175 MPV 9.0 Neut % (Auto) 72.1 Lymph % (Auto) 13.3 L Gooding % (Auto) 10.8 H Eos % (Auto) 3.2 Baso % (Auto) 0.6 Neut # (Auto) 4.4 Lymph # (Auto) 0.8 L Gooding # (Auto) 0.7 Eos # (Auto) 0.2 Baso # (Auto) 0.0 Sodium 141 Potassium 4.0 Chloride 106 Carbon Dioxide 24 Anion Gap 15 BUN 20 Creatinine 1.1 Est GFR ( Amer) > 60 Est GFR (Non-Af Amer) > 60 Random Glucose 94 Calcium 8.6 Phosphorus 3.2 Magnesium 1.9 Total Bilirubin 0.8 AST 28 ALT 29 Alkaline Phosphatase 81 Total Protein 6.4 Albumin 3.7 Globulin 2.7 Albumin/Globulin Ratio 1.4 Critical Care Progress Note - Nutrition Nutrition: Nutrition Category Date Time Status Heart Healthy Diet [DIET] Diets 12/28/17 Dinner Active NPO Diet [DIET] Diets 12/28/17 Breakfast Active Assessment/Plan - Assessment and Plan (Free Text) Assessment: This is a 77 year old male with PMHx of HTN, CVA with residual weakness, h/o syncopal episodes while on beta heriberto, h/o prostate cancer on 3 month cystoscopy, presented to the [place] ER with c/o chest pain, with improved initially then got worse, repeat EKG showed inferior STEMI. Patient also has LAD and Left Circumflex disease will need to have intervention performed in [place] 12/28/17. Plan: Neuro: GCS 15 A: Hx CVA with residual weakness - No briliinta 2/2 to hx CVA Cardio: A: STEMI, inferior wall -- Dr. Troncoso - S/P PCI 100% RCA, with LAD and Left circumflex - Pending ECHO read - Patient is to be transferred to [place] for PCI intervention 12/28/17 - Started ASA, Plavix, Coreg, Metoprolol, Crestor Pulm: - No acute issues GI: - No acute issues : A: Hx Prostate Cancer Prophylaxis: - Pepcid - SCDs, Hep Q8H - PT Eval Disposition: Patient s/p cardiac cath with ARABELLA placement in RCA. Transfer to [place] 12/28/17 for PCI intervention. Patient will return to [facility]. Yara Etienne Dr., DO, PGY-1 <Renzo Zamarripa S - Last Filed: 12/28/17 17:11> CCU Objective - Vital Signs / Intake & Output Vital Signs (Last 4 hours): Vital Signs Temp Pulse Resp BP Pulse Ox 12/28/17 15:00 74 19 96 12/28/17 14:57 79 18 172/72 H 97 12/28/17 14:50 99 F 100 12/28/17 14:43 76 97 Intake and Output (Last 8hrs): Intake & Output 12/28/17 12/28/17 12/28/17 06:59 14:59 22:59 Intake Total 0 0 75 Output Total 1100 200 120 Balance -1100 -200 -45 Weight 190 lb 4.143 oz Intake: Intake, IV Amount 75 Left Antecubital 75 Oral 0 0 Output: Urine 1100 200 120 Urine, Voided 1100 200 120 Stool 0 Emesis 0 0 Other: # Bowel Movements 1 0 - Medications Active Medications: Active Medications Generic Name Dose Route Start Last Admin Trade Name Freq PRN Reason Stop Dose Admin Acetaminophen 650 mg 12/27/17 07:34 Tylenol 325mg Tab PO Q6 PRN Pain, Mild (1-3) Aspirin 81 mg 12/27/17 11:30 12/28/17 10:00 Ecotrin PO Not Given DAILY [facility] Carvedilol 6.25 mg 12/27/17 10:00 12/28/17 10:00 Coreg PO Not Given BID [facility] Clopidogrel Bisulfate 75 mg 12/28/17 10:00 Plavix PO DAILY [facility] Famotidine 20 mg 12/27/17 10:00 12/27/17 11:07 Pepcid PO 20 mg DAILY [facility] Administration Heparin Sodium (Porcine) 5,000 units 12/27/17 14:00 12/27/17 21:33 Heparin SC 5,000 units Q8 [facility] Administration Metoprolol Succinate 12.5 mg 12/28/17 10:00 Toprol Xl PO DAILY [facility] Rosuvastatin Calcium 20 mg 12/26/17 22:00 12/27/17 21:33 Crestor PO 20 mg HS [facility] Administration - Patient Studies Lab Studies: Microbiology Studies 12/26/17 22:28 MRSA Culture (Admit) - Final Naris MRSA NOT DETECTED Lab Studies 12/28/17 12/28/17 Range/Units 05:56 05:56 WBC 6.1 (4.8-10.8) K/uL RBC 4.29 L (4.40-5.90) Mil/uL Hgb 12.5 (12.0-18.0) g/dL Hct 37.1 (35.0-51.0) % MCV 86.5 (80.0-94.0) fL MCH 29.2 (27.0-31.0) pg MCHC 33.7 (33.0-37.0) g/dL RDW 14.9 H (11.5-14.5) % Plt Count 175 (130-400) K/uL MPV 9.0 (7.2-11.7) fL Neut % (Auto) 72.1 (50.0-75.0) % Lymph % (Auto) 13.3 L (20.0-40.0) % Gooding % (Auto) 10.8 H (0.0-10.0) % Eos % (Auto) 3.2 (0.0-4.0) % Baso % (Auto) 0.6 (0.0-2.0) % Neut # (Auto) 4.4 (1.8-7.0) K/uL Lymph # (Auto) 0.8 L (1.0-4.3) K/uL Gooding # (Auto) 0.7 (0.0-0.8) K/uL Eos # (Auto) 0.2 (0.0-0.7) K/uL Baso # (Auto) 0.0 (0.0-0.2) K/uL Sodium 141 (132-148) mmol/L Potassium 4.0 (3.6-5.2) mmol/L Chloride 106 (98-107) mmol/L Carbon Dioxide 24 (22-30) mmol/L Anion Gap 15 (10-20) BUN 20 (9-20) mg/dL Creatinine 1.1 (0.8-1.5) mg/dL Est GFR ( Amer) > 60 Est GFR (Non-Af Amer) > 60 Random Glucose 94 (75-110) mg/dL Calcium 8.6 (8.6-10.4) mg/dl Phosphorus 3.2 (2.5-4.5) mg/dL Magnesium 1.9 (1.6-2.3) mg/dL Total Bilirubin 0.8 (0.2-1.3) mg/dL AST 28 (17-59) U/L ALT 29 (21-72) U/L Alkaline Phosphatase 81 (38-126) U/L Total Protein 6.4 (6.3-8.3) g/dL Albumin 3.7 (3.5-5.0) g/dL Globulin 2.7 (2.2-3.9) gm/dL Albumin/Globulin Ratio 1.4 (1.0-2.1) Laboratory Results - last 24 hr 12/28/17 12/28/17 05:56 05:56 WBC 6.1 RBC 4.29 L Hgb 12.5 Hct 37.1 MCV 86.5 MCH 29.2 MCHC 33.7 RDW 14.9 H Plt Count 175 MPV 9.0 Neut % (Auto) 72.1 Lymph % (Auto) 13.3 L Gooding % (Auto) 10.8 H Eos % (Auto) 3.2 Baso % (Auto) 0.6 Neut # (Auto) 4.4 Lymph # (Auto) 0.8 L Gooding # (Auto) 0.7 Eos # (Auto) 0.2 Baso # (Auto) 0.0 Sodium 141 Potassium 4.0 Chloride 106 Carbon Dioxide 24 Anion Gap 15 BUN 20 Creatinine 1.1 Est GFR ( Amer) > 60 Est GFR (Non-Af Amer) > 60 Random Glucose 94 Calcium 8.6 Phosphorus 3.2 Magnesium 1.9 Total Bilirubin 0.8 AST 28 ALT 29 Alkaline Phosphatase 81 Total Protein 6.4 Albumin 3.7 Globulin 2.7 Albumin/Globulin Ratio 1.4 Critical Care Progress Note - Nutrition Nutrition: Nutrition Category Date Time Status Heart Healthy Diet [DIET] Diets 12/28/17 Dinner Active Attending/Attestation - Attestation I have personally seen and examined this patient.: Yes I have fully participated in the care of the patient.: Yes I have reviewed all pertinent clinical information: Yes Notes (Text): 12/28/17 13:11 patient seen and examined in the intensive care unit. Patient for PCI of LAD and circumflex Continue present treatment
[2017-12-28] MEDS ORDERED: Bisacodyl 5mg EC Tab PO ONE (17:45)
--- NOTE | 2017-12-28 21:53 | CARD ---
APPROVED REPORT EXAM: Two-dimensional and M-mode echocardiogram with Doppler and color Doppler. Other Information Quality : GoodRhythm : INDICATION Cardiac Disease: CAD Non STEMI Surgery/Intervention Status/Post Intervention: Stent in RCA 2D DIMENSIONS IVSd1.4 (0.7-1.1cm)LVDd4.7 (3.9-5.9cm) PWd1.5 (0.7-1.1cm)LVDs2.8 (2.5-4.0cm) FS (%) 40.2 %LVEF (%)70.9 (>50%) M-Mode DIMENSIONS Left Atrium (MM)3.80 (2.5-4.0cm)Aortic Root3.46 (2.2-3.7cm) Aortic Cusp Exc.2.35 (1.5-2.0cm) Aortic Valve AI P 1/2 [id number] Mitral Valve MV E Zpkzetgn07.1cm/sMV A Ksqcnhis58.5cm/sE/A ratio1.2 TDI E/Lateral E'0.0E/Medial E'0.0 Tricuspid Valve TR Peak [id number] Peak Gr.[id number] LEFT VENTRICLE There is mild to moderate concentric left ventricular hypertrophy. Left ventricle systolic function is normal. The Ejection Fraction is >70%. There is normal LV segmental wall motion. The left ventricular diastolic function is normal. No left ventricle thrombus noted on this study. RIGHT VENTRICLE The right ventricle is normal size. The right ventricular systolic function is normal. ATRIA The left atrium size is normal. The right atrium size is normal. AORTIC VALVE The aortic valve is mildly sclerotic. The aortic valve is trileaflet. There is mild to moderate aortic regurgitation. There is no aortic valvular stenosis. There is no aortic valvular vegetation. MITRAL VALVE Mitral annular calcification is mild. There is no evidence of mitral valve prolapse. There is no mitral valve stenosis. Mitral regurgitation is mild. TRICUSPID VALVE The tricuspid valve is normal in structure. There is mild tricuspid regurgitation. Right ventricular systolic pressure is estimated at 30-40 mmHg. There is no pulmonary hypertension. There is no tricuspid valve prolapse or vegetation. There is no tricuspid valve stenosis. PULMONIC VALVE The pulmonary valve is normal in structure. There is trace to mild pulmonic valvular regurgitation. There is no pulmonic valvular stenosis. GREAT VESSELS The aortic root is normal in size. The IVC is normal in size and collapses >50% with inspiration. PERICARDIAL EFFUSION There is no pericardial effusion. There is no pleural effusion. <Conclusion> There is mild to moderate concentric left ventricular hypertrophy. Left ventricle systolic function is normal. The Ejection Fraction is >70%. The left ventricular diastolic function is normal. The right ventricle is normal size. The right ventricular systolic function is normal. The left atrium size is normal. The right atrium size is normal. There is mild to moderate aortic regurgitation. Mitral regurgitation is mild. There is mild tricuspid regurgitation. There is trace to mild pulmonic valvular regurgitation.
--- NOTE | 2017-12-28 22:00 | CP.PCM.PN ---
Subjective - Date & Time of Evaluation Date of Evaluation: 12/28/17 Time of Evaluation: 22:02 - Subjective Subjective: Patient in S/P percutaneus cardiology intervention. C/O same discomfort in the inguinal area. Objective - Vital Signs/Intake and Output Vital Signs (last 24 hours): Temp Pulse Resp BP Pulse Ox 98.9 F 81 19 173/71 H 96 12/28/17 18:00 12/28/17 19:00 12/28/17 19:00 12/28/17 18:07 12/28/17 19:00 Intake and Output: 12/28/17 12/28/17 11:59 23:59 Intake Total 0 760 Output Total 1300 780 Balance -1300 -20 - Medications Medications: Current Medications Acetaminophen (Tylenol 325mg Tab) 650 mg PO Q6 PRN PRN Reason: Pain, Mild (1-3) Aspirin (Ecotrin) 81 mg PO DAILY [facility] Last Admin: 12/28/17 10:00 Dose: Not Given Carvedilol (Coreg) 6.25 mg PO BID [facility] Last Admin: 12/28/17 17:18 Dose: 6.25 mg Clopidogrel Bisulfate (Plavix) 75 mg PO DAILY [facility] Last Admin: 12/28/17 10:00 Dose: Not Given Docusate Sodium (Colace) 100 mg PO TID [facility] Last Admin: 12/28/17 18:42 Dose: 100 mg Famotidine (Pepcid) 20 mg PO DAILY [facility] Last Admin: 12/28/17 17:17 Dose: 20 mg Heparin Sodium (Porcine) (Heparin) 5,000 units SC Q8 [facility] Last Admin: 12/28/17 21:28 Dose: 5,000 units Metoprolol Succinate (Toprol Xl) 12.5 mg PO DAILY [facility] Last Admin: 12/28/17 10:00 Dose: Not Given Rosuvastatin Calcium (Crestor) 20 mg PO HS [facility] Last Admin: 12/28/17 21:28 Dose: 20 mg - Labs Labs: 12/28/17 05:56 12/28/17 05:56 - Constitutional Appears: Non-toxic - Head Exam Head Exam: ATRAUMATIC, NORMAL INSPECTION, NORMOCEPHALIC - Eye Exam Eye Exam: Normal appearance - ENT Exam ENT Exam: Mucous Membranes Moist - Neck Exam Neck Exam: Full ROM - Respiratory Exam Respiratory Exam: Clear to Ausculation Bilateral - Cardiovascular Exam Cardiovascular Exam: REGULAR RHYTHM, +S1, +S2 - GI/Abdominal Exam GI & Abdominal Exam: Soft, Normal Bowel Sounds - Extremities Exam Extremities Exam: Normal Inspection - Neurological Exam Neurological Exam: Alert, Awake, CN II-XII Intact, Oriented x3 Assessment and Plan (1) Coronary arteriosclerosis Status: Acute (2) STEMI (ST elevation myocardial infarction) Status: Acute (3) Hypertension Status: Acute (4) Combined hyperlipidemia Status: Acute - Assessment and Plan (Free Text) Plan: F/U cardiology consult and official report.
[2017-12-29 05:58] LABS: BASO % 0.4 % (0.0-2.0); EOS # 0.1 K/uL (0.0-0.7); EOS % 1.9 % (0.0-4.0); HEMOGLOBIN 12.3 g/dL (12.0-18.0); LYMPH # 1.4 K/uL (1.0-4.3); LYMPH % 19.5 % (20.0-40.0); MEAN CELL VOLUME 86.7 fL (80.0-94.0); MEAN CORPUSCULAR HEMOGLOBIN 29.2 pg (27.0-31.0); MEAN CORPUSCULAR HGB CONC 33.7 g/dL (33.0-37.0); MEAN PLATELET VOLUME 8.9 fL (7.2-11.7); MONO # 0.9 K/uL (0.0-0.8); MONO % 12.1 % (0.0-10.0); NEUT # 4.7 K/uL (1.8-7.0); NEUT % 66.1 % (50.0-75.0); RBC 4.19 Mil/uL (4.40-5.90); RED CELL DISTRIBUTION WIDTH 15.3 % (11.5-14.5); WHITE BLOOD COUNT 7.1 K/uL (4.8-10.8)
[2017-12-29 06:22] LABS: ALB/GLOB RATIO 1.3 (1.0-2.1); ALBUMIN 3.7 g/dL (3.5-5.0); ALT/SGPT 21 U/L (21-72); AST/SGOT 22 U/L (17-59); BLOOD UREA NITROGEN 22 mg/dL (9-20); CALCIUM 8.6 mg/dl (8.6-10.4); GFR AFRICAN-AMERICAN > 60; GFR NON-AFRICAN AMERICAN > 60
[2017-12-29] MEDS ORDERED: DOPamine 400mg/250ml D5W 400 MG/250 ML BAG IV ONE (10:51)
[2017-12-29] MEDS ORDERED: Sodium Chloride 0.9% 500 ML IV ONE ×2 (11:00→13:45)
[2017-12-29] MEDS ORDERED: DOBUTamine 500mg/250ml D5W 500 MG/250 ML BAG IV SCH (11:00)
[2017-12-29] MEDS: Metoprolol Succinate 12.5 mg XL Tab PO SCH (11:42)
[2017-12-29] MEDS ORDERED: DOPamine 400mg/250ml D5W 400 MG/250 ML BAG IV PRN (11:57)
--- NOTE | 2017-12-29 13:14 | CP.PCM.PN ---
Subjective - Date & Time of Evaluation Date of Evaluation: 12/29/17 Time of Evaluation: 13:10 - Subjective Subjective: Sitting in chair, had two episodes of weakness with diaphoresis in morning. Telemetry showing Bradycardia with Low bP. He was treated accordingly. As per and patient he had simmilar episode some time ago and fell down with head trauma. EKG before episod enSR with no acute changes and telemetry showing sinus Bradycardia. At th etime of examination asymptomatic. Objective - Vital Signs/Intake and Output Vital Signs (last 24 hours): Temp Pulse Resp BP Pulse Ox 98.1 F 73 12 107/45 L 96 12/29/17 10:00 12/29/17 12:00 12/29/17 12:00 12/29/17 11:59 12/29/17 12:00 Intake and Output: 12/29/17 12/29/17 06:59 18:59 Intake Total 300 1060 Output Total 1100 0 Balance -800 1060 - Medications Medications: Current Medications Acetaminophen (Tylenol 325mg Tab) 650 mg PO Q6 PRN PRN Reason: Pain, Mild (1-3) Aspirin (Ecotrin) 81 mg PO DAILY [facility] Last Admin: 12/29/17 11:50 Dose: 81 mg Carvedilol (Coreg) 6.25 mg PO BID [facility] Last Admin: 12/29/17 11:42 Dose: Not Given Clopidogrel Bisulfate (Plavix) 75 mg PO DAILY [facility] Last Admin: 12/29/17 11:50 Dose: 75 mg Docusate Sodium (Colace) 100 mg PO TID [facility] Last Admin: 12/29/17 11:46 Dose: 100 mg Famotidine (Pepcid) 20 mg PO DAILY [facility] Last Admin: 12/28/17 17:17 Dose: 20 mg Heparin Sodium (Porcine) (Heparin) 5,000 units SC Q8 [facility] Last Admin: 12/29/17 05:38 Dose: 5,000 units Dopamine HCl/Dextrose (Dopamine 400mg/250ml D5w) 400 mg in 250 mls @ 6.473 mls/ hr IV .Q24H PRN; Protocol; 2 MCG/KG/MIN PRN Reason: TITRATE PER MD ORDER Last Admin: 12/29/17 10:45 Dose: 3 mcg/kg/min, 9.709 mls/hr Rosuvastatin Calcium (Crestor) 20 mg PO HS [facility] Last Admin: 12/28/17 21:28 Dose: 20 mg - Labs Labs: 12/29/17 05:54 12/29/17 05:54 - Head Exam Head Exam: NORMOCEPHALIC - Neck Exam Neck Exam: Normal Inspection - Respiratory Exam Respiratory Exam: NORMAL BREATHING PATTERN - Cardiovascular Exam Cardiovascular Exam: REGULAR RHYTHM - Extremities Exam Extremities Exam: Normal Inspection - Neurological Exam Neurological Exam: Alert, Oriented x3 Assessment and Plan (1) Combined hyperlipidemia Assessment & Plan: Controlled, continue lipid lowering agents. Status: Acute (2) STEMI (ST elevation myocardial infarction) Assessment & Plan: Had successful PCI of RCA and LAD. Continue DAPT. Status: Acute (3) Cerebrovascular accident Status: Acute (4) Bradycardia Assessment & Plan: Multiple episodes, Etiology ?. Hold beta blockers. Fall precautions. will Consider ruling out SSS. R/O ACS. Status: Acute (5) Hypertension Status: Acute (6) Low BP Assessment & Plan: Most likely seconday to bradycardia. Monitor, IV fluids. D/C Dopamine when BP is above 120mmHg. Status: Acute
[2017-12-29 14:12] LABS: CK-MB 1.66 ng/mL (0.0-3.38); TROPONIN I 0.238 ng/mL (0.00-0.120)
--- NOTE | 2017-12-29 15:11 | CP.PCM.PN ---
Subjective - Date & Time of Evaluation Date of Evaluation: 12/29/17 Time of Evaluation: 15:11 - Subjective Subjective: patient had an episode of symptomatic hypotension and Bradycardia. Objective - Vital Signs/Intake and Output Vital Signs (last 24 hours): Temp Pulse Resp BP Pulse Ox 98.1 F 73 12 107/45 L 96 12/29/17 10:00 12/29/17 12:00 12/29/17 12:00 12/29/17 11:59 12/29/17 12:00 Intake and Output: 12/29/17 12/29/17 11:59 23:59 Intake Total 1090 70 Output Total 600 Balance 490 70 - Medications Medications: Current Medications Acetaminophen (Tylenol 325mg Tab) 650 mg PO Q6 PRN PRN Reason: Pain, Mild (1-3) Aspirin (Ecotrin) 81 mg PO DAILY [facility] Last Admin: 12/29/17 11:50 Dose: 81 mg Clopidogrel Bisulfate (Plavix) 75 mg PO DAILY [facility] Last Admin: 12/29/17 11:50 Dose: 75 mg Docusate Sodium (Colace) 100 mg PO TID [facility] Last Admin: 12/29/17 11:46 Dose: 100 mg Famotidine (Pepcid) 20 mg PO DAILY [facility] Last Admin: 12/29/17 13:13 Dose: 20 mg Heparin Sodium (Porcine) (Heparin) 5,000 units SC Q8 [facility] Last Admin: 12/29/17 14:06 Dose: 5,000 units Dopamine HCl/Dextrose (Dopamine 400mg/250ml D5w) 400 mg in 250 mls @ 6.473 mls/ hr IV .Q24H PRN; Protocol; 2 MCG/KG/MIN PRN Reason: TITRATE PER MD ORDER Last Admin: 12/29/17 10:45 Dose: 3 mcg/kg/min, 9.709 mls/hr Rosuvastatin Calcium (Crestor) 20 mg PO HS [facility] Last Admin: 12/28/17 21:28 Dose: 20 mg - Labs Labs: 12/29/17 05:54 12/29/17 05:54 - Constitutional Appears: Non-toxic, Chronically Ill - Head Exam Head Exam: ATRAUMATIC, NORMAL INSPECTION, NORMOCEPHALIC - Eye Exam Eye Exam: Normal appearance - ENT Exam ENT Exam: Mucous Membranes Moist - Neck Exam Neck Exam: Full ROM - Respiratory Exam Respiratory Exam: Clear to Ausculation Bilateral - Cardiovascular Exam Cardiovascular Exam: REGULAR RHYTHM, +S1, +S2 - GI/Abdominal Exam GI & Abdominal Exam: Soft, Normal Bowel Sounds - Extremities Exam Extremities Exam: Full ROM, Normal Capillary Refill, Normal Inspection - Neurological Exam Neurological Exam: Alert, Awake, CN II-XII Intact, Normal Gait, Oriented x3 Assessment and Plan (1) Coronary arteriosclerosis Status: Acute (2) STEMI (ST elevation myocardial infarction) Status: Acute (3) Hypertension Status: Acute (4) Combined hyperlipidemia Status: Acute (5) Bradycardia Status: Acute (6) Hypotension Status: Acute - Assessment and Plan (Free Text) Plan: Continue present rx
--- NOTE | 2017-12-29 18:10 | CP.CCUPN ---
<Yara Owens - Last Filed: 12/29/17 17:58> CCU Subjective - Physician Review Subjective (Free Text): Patient seen and examined at bedside after patient had a symptomatic hypotensive episode where his SBP dropped to 60s/40s. Patient was bolused total 1 L and started on Dopamine drip. EP consulted for possible SSS? CCU Objective - Vital Signs / Intake & Output Vital Signs (Last 4 hours): Vital Signs Temp Pulse Resp BP Pulse Ox 12/29/17 17:09 77 22 124/55 L 97 12/29/17 17:00 77 15 98 12/29/17 16:40 82 20 89/59 L 97 12/29/17 16:09 76 20 100/49 L 99 12/29/17 16:00 98.2 F 12/29/17 15:39 68 18 113/48 L 97 12/29/17 15:09 69 16 125/54 L 98 12/29/17 15:00 71 14 96 12/29/17 14:39 71 18 112/48 L 96 12/29/17 14:09 77 19 108/45 L 96 12/29/17 14:00 98.2 F 75 17 97 Intake and Output (Last 8hrs): Intake & Output 12/29/17 12/29/17 12/29/17 06:59 14:59 22:59 Intake Total 100 1880 382.8 Output Total 800 600 450 Balance -700 1280 -67.2 Weight 190 lb 4.143 oz Intake: Intake, IV Amount 1040 22.8 Left Antecubital 1000 Right Antecubital 40 22.8 Oral 100 840 360 Output: Urine 800 600 450 Urine, Voided 800 600 450 Other: # Voids Urine, Voided 1 # Bowel Movements 0 0 - Physical Exam Head: Positive for: Atraumatic, Normocephalic, Ecchymosis Extroacular Muscles: Positive for: EOMI Conjunctiva: Positive for: Normal Mouth: Positive for: Moist Mucous Membranes Neck: Positive for: Normal Range of Motion Respiratory/Chest: Positive for: Clear to Auscultation Cardiovascular: Positive for: Regular Rate and Rhythm Abdomen: Positive for: Normal Bowel Sounds. Negative for: Tenderness, Distention Upper Extremity: Positive for: Normal Inspection, NORMAL PULSES, Neurovascularly Intact, Capillary Refill < 2s Lower Extremity: Positive for: Normal Inspection, NORMAL PULSES, Neurovascularly Intact, Capillary Refill < 2 s Neurological: Positive for: GCS=15, CN II-XII Intact Skin: Positive for: Warm, Dry Psychiatric: Positive for: Alert, Oriented x 3, Normal Concentration - Medications Active Medications: Active Medications Generic Name Dose Route Start Last Admin Trade Name Freq PRN Reason Stop Dose Admin Acetaminophen 650 mg 12/27/17 07:34 Tylenol 325mg Tab PO Q6 PRN Pain, Mild (1-3) Aspirin 81 mg 12/27/17 11:30 12/29/17 11:50 Ecotrin PO 81 mg DAILY [facility] Administration Clopidogrel Bisulfate 75 mg 12/28/17 10:00 12/29/17 11:50 Plavix PO 75 mg DAILY [facility] Administration Docusate Sodium 100 mg 12/28/17 18:00 12/29/17 17:13 Colace PO 100 mg TID [facility] Administration Famotidine 20 mg 12/27/17 10:00 12/29/17 13:13 Pepcid PO 20 mg DAILY [facility] Administration Heparin Sodium (Porcine) 5,000 units 12/27/17 14:00 12/29/17 14:06 Heparin SC 5,000 units Q8 [facility] Administration Dopamine HCl/Dextrose 400 mg in 250 mls @ 6.473 mls/hr 12/29/17 11:57 10:45 Dopamine 400mg/250ml D5w IV 3 mcg/kg/min .Q24H PRN 9.709 mls/hr TITRATE PER MD ORDER Administration Protocol 2 MCG/KG/MIN Rosuvastatin Calcium 20 mg 12/26/17 22:00 12/28/17 21:28 Crestor PO 20 mg HS [facility] Administration - Patient Studies Lab Studies: Lab Studies 12/29/17 12/29/17 12/29/17 Range/Units 13:17 05:54 05:54 WBC 7.1 (4.8-10.8) K/uL RBC 4.19 L (4.40-5.90) Mil/uL Hgb 12.3 (12.0-18.0) g/dL Hct 36.4 (35.0-51.0) % MCV 86.7 (80.0-94.0) fL MCH 29.2 (27.0-31.0) pg MCHC 33.7 (33.0-37.0) g/dL RDW 15.3 H (11.5-14.5) % Plt Count 243 (130-400) K/uL MPV 8.9 (7.2-11.7) fL Neut % (Auto) 66.1 (50.0-75.0) % Lymph % (Auto) 19.5 L (20.0-40.0) % Hughes % (Auto) 12.1 H (0.0-10.0) % Eos % (Auto) 1.9 (0.0-4.0) % Baso % (Auto) 0.4 (0.0-2.0) % Neut # (Auto) 4.7 (1.8-7.0) K/uL Lymph # (Auto) 1.4 (1.0-4.3) K/uL [place] # (Auto) 0.9 H (0.0-0.8) K/uL Eos # (Auto) 0.1 (0.0-0.7) K/uL Baso # (Auto) 0.0 (0.0-0.2) K/uL Sodium 140 (132-148) mmol/L Potassium 4.4 (3.6-5.2) mmol/L Chloride 106 (98-107) mmol/L Carbon Dioxide 20 L (22-30) mmol/L Anion Gap 18 (10-20) BUN 22 H (9-20) mg/dL Creatinine 1.1 (0.8-1.5) mg/dL Est GFR ( Amer) > 60 Est GFR (Non-Af Amer) > 60 POC Glucose (mg/dL) (65-110) mg/dL Random Glucose 130 H (75-110) mg/dL Calcium 8.6 (8.6-10.4) mg/dl Phosphorus 3.9 (2.5-4.5) mg/dL Magnesium 2.0 (1.6-2.3) mg/dL Total Bilirubin 0.9 (0.2-1.3) mg/dL AST 22 (17-59) U/L ALT 21 D (21-72) U/L Alkaline Phosphatase 85 (38-126) U/L Total Creatine Kinase 34 L (55-170) U/L CK-MB (Mass) 1.66 (0.0-3.38) ng/mL Troponin I 0.2380 H* (0.00-0.120) ng/mL Total Protein 6.6 (6.3-8.3) g/dL Albumin 3.7 (3.5-5.0) g/dL Globulin 2.8 (2.2-3.9) gm/dL Albumin/Globulin Ratio 1.3 (1.0-2.1) 12/29/17 Range/Units 05:31 WBC (4.8-10.8) K/uL RBC (4.40-5.90) Mil/uL Hgb (12.0-18.0) g/dL Hct (35.0-51.0) % MCV (80.0-94.0) fL MCH (27.0-31.0) pg MCHC (33.0-37.0) g/dL RDW (11.5-14.5) % Plt Count (130-400) K/uL MPV (7.2-11.7) fL Neut % (Auto) (50.0-75.0) % Lymph % (Auto) (20.0-40.0) % Hughes % (Auto) (0.0-10.0) % Eos % (Auto) (0.0-4.0) % Baso % (Auto) (0.0-2.0) % Neut # (Auto) (1.8-7.0) K/uL Lymph # (Auto) (1.0-4.3) K/uL [place] # (Auto) (0.0-0.8) K/uL Eos # (Auto) (0.0-0.7) K/uL Baso # (Auto) (0.0-0.2) K/uL Sodium (132-148) mmol/L Potassium (3.6-5.2) mmol/L Chloride (98-107) mmol/L Carbon Dioxide (22-30) mmol/L Anion Gap (10-20) BUN (9-20) mg/dL Creatinine (0.8-1.5) mg/dL Est GFR ( Amer) Est GFR (Non-Af Amer) POC Glucose (mg/dL) 137 H (65-110) mg/dL Random Glucose (75-110) mg/dL Calcium (8.6-10.4) mg/dl Phosphorus (2.5-4.5) mg/dL Magnesium (1.6-2.3) mg/dL Total Bilirubin (0.2-1.3) mg/dL AST (17-59) U/L ALT (21-72) U/L Alkaline Phosphatase (38-126) U/L Total Creatine Kinase (55-170) U/L CK-MB (Mass) (0.0-3.38) ng/mL Troponin I (0.00-0.120) ng/mL Total Protein (6.3-8.3) g/dL Albumin (3.5-5.0) g/dL Globulin (2.2-3.9) gm/dL Albumin/Globulin Ratio (1.0-2.1) Laboratory Results - last 24 hr 12/29/17 12/29/17 12/29/17 05:31 05:54 05:54 WBC 7.1 RBC 4.19 L Hgb 12.3 Hct 36.4 MCV 86.7 MCH 29.2 MCHC 33.7 RDW 15.3 H Plt Count 243 MPV 8.9 Neut % (Auto) 66.1 Lymph % (Auto) 19.5 L [place] % (Auto) 12.1 H Eos % (Auto) 1.9 Baso % (Auto) 0.4 Neut # (Auto) 4.7 Lymph # (Auto) 1.4 [place] # (Auto) 0.9 H Eos # (Auto) 0.1 Baso # (Auto) 0.0 Sodium 140 Potassium 4.4 Chloride 106 Carbon Dioxide 20 L Anion Gap 18 BUN 22 H Creatinine 1.1 Est GFR ( Amer) > 60 Est GFR (Non-Af Amer) > 60 POC Glucose (mg/dL) 137 H Random Glucose 130 H Calcium 8.6 Phosphorus 3.9 Magnesium 2.0 Total Bilirubin 0.9 AST 22 ALT 21 D Alkaline Phosphatase 85 Total Creatine Kinase CK-MB (Mass) Troponin I Total Protein 6.6 Albumin 3.7 Globulin 2.8 Albumin/Globulin Ratio 1.3 12/29/17 13:17 WBC RBC Hgb Hct MCV MCH MCHC RDW Plt Count MPV Neut % (Auto) Lymph % (Auto) [place] % (Auto) Eos % (Auto) Baso % (Auto) Neut # (Auto) Lymph # (Auto) [place] # (Auto) Eos # (Auto) Baso # (Auto) Sodium Potassium Chloride Carbon Dioxide Anion Gap BUN Creatinine Est GFR ( Amer) Est GFR (Non-Af Amer) POC Glucose (mg/dL) Random Glucose Calcium Phosphorus Magnesium Total Bilirubin AST ALT Alkaline Phosphatase Total Creatine Kinase 34 L CK-MB (Mass) 1.66 Troponin I 0.2380 H* Total Protein Albumin Globulin Albumin/Globulin Ratio EKG/Cardiology Studies: Cardiology / EKG Studies 12/29/17 09:31 EKG [ELECTROCARDIOGRAM] Routine Comment: Mode Of Transportation: Reason For Exam: s/p pci x 3 Critical Care Progress Note - Nutrition Nutrition: Nutrition Category Date Time Status Heart Healthy Diet [DIET] Diets 12/28/17 Dinner Active Assessment/Plan - Assessment and Plan (Free Text) Assessment: This is a 77 year old male with PMHx of HTN, CVA with residual weakness, h/o syncopal episodes while on beta heriberto, h/o prostate cancer on 3 month cystoscopy, presented to the [place] ER with c/o chest pain, with improved initially then got worse, repeat EKG showed inferior STEMI s/p RCA ARABELLA stent placement 12/27. Patient also has LAD and Left Circumflex disease, s/p PCI placement in [place] on 12/28/17. Had a symptomatic hypotensive episode 12/29/17 where his SBP dropped to 60s/40s. Patient was bolused total 1 L and started on Dopamine drip. EP consulted for possible SSS? Plan: Neuro: GCS 15 A: Hx CVA with residual weakness - No briliinta 2/2 to hx CVA Cardio: A: Symptomatic Hypotension -- Dr. Sorto consulted - SBP dropped to 60s/40s - Patient was bolused total 1 L and started on Dopamine drip 12/29 - EP consulted for possible SSS? A: STEMI, inferior wall -- Dr. Troncoso - S/P PCI placement 100% RCA 12/27, with LAD and Left circumflex disease - ECHO: LVH, LVEF >70% - Patient is s/p PCI intervention with ARABELLA in LAD and Left Circumflex 12/28/17 - Started ASA, Plavix, Crestor, HELD Coreg, Metoprolol 2/2 hypotension Pulm: - No acute issues GI: - No acute issues : A: Hx Prostate Cancer Prophylaxis: - Pepcid - SCDs, Hep Q8H - PT Eval Disposition: Pending EP reccs. DW Dr. Hua, Yara Owens DO, PGY-1 <Larry Hua - Last Filed: 12/31/17 21:31> CCU Objective - Vital Signs / Intake & Output Intake and Output (Last 8hrs): Intake & Output 12/31/17 12/31/17 12/31/17 06:59 14:59 22:59 Intake Total 300 400 Output Total 800 500 Balance -500 -100 Weight 191 lb Intake: Oral 300 400 Output: Urine 800 500 Urine, Voided 800 500 - Patient Studies Lab Studies: Lab Studies 12/31/17 12/31/17 Range/Units 06:30 06:30 WBC 5.0 (4.8-10.8) K/uL RBC 3.60 L (4.40-5.90) Mil/uL Hgb 10.5 L (12.0-18.0) g/dL Hct 31.2 L (35.0-51.0) % MCV 86.8 (80.0-94.0) fL MCH 29.2 (27.0-31.0) pg MCHC 33.7 (33.0-37.0) g/dL RDW 15.6 H (11.5-14.5) % Plt Count 181 (130-400) K/uL MPV 9.2 (7.2-11.7) fL Neut % (Auto) 62.6 (50.0-75.0) % Lymph % (Auto) 18.5 L (20.0-40.0) % Hughes % (Auto) 12.7 H (0.0-10.0) % Eos % (Auto) 5.6 H (0.0-4.0) % Baso % (Auto) 0.6 (0.0-2.0) % Neut # (Auto) 3.1 (1.8-7.0) K/uL Lymph # (Auto) 0.9 L (1.0-4.3) K/uL Hughes # (Auto) 0.6 (0.0-0.8) K/uL Eos # (Auto) 0.3 (0.0-0.7) K/uL Baso # (Auto) 0.0 (0.0-0.2) K/uL Sodium 141 (132-148) mmol/L Potassium 4.1 (3.6-5.2) mmol/L Chloride 107 (98-107) mmol/L Carbon Dioxide 22 (22-30) mmol/L Anion Gap 16 (10-20) BUN 28 H (9-20) mg/dL Creatinine 1.0 (0.8-1.5) mg/dL Est GFR ( Amer) > 60 Est GFR (Non-Af Amer) > 60 Random Glucose 95 (75-110) mg/dL Calcium 7.8 L (8.6-10.4) mg/dl Phosphorus 3.6 (2.5-4.5) mg/dL Magnesium 2.0 (1.6-2.3) mg/dL Total Bilirubin 0.6 (0.2-1.3) mg/dL AST 23 (17-59) U/L ALT 31 (21-72) U/L Alkaline Phosphatase 77 (38-126) U/L Total Protein 6.2 L (6.3-8.3) g/dL Albumin 3.4 L (3.5-5.0) g/dL Globulin 2.8 (2.2-3.9) gm/dL Albumin/Globulin Ratio 1.2 (1.0-2.1) Laboratory Results - last 24 hr 12/31/17 12/31/17 06:30 06:30 WBC 5.0 RBC 3.60 L Hgb 10.5 L Hct 31.2 L MCV 86.8 MCH 29.2 MCHC 33.7 RDW 15.6 H Plt Count 181 MPV 9.2 Neut % (Auto) 62.6 Lymph % (Auto) 18.5 L Hughes % (Auto) 12.7 H Eos % (Auto) 5.6 H Baso % (Auto) 0.6 Neut # (Auto) 3.1 Lymph # (Auto) 0.9 L Hughes # (Auto) 0.6 Eos # (Auto) 0.3 Baso # (Auto) 0.0 Sodium 141 Potassium 4.1 Chloride 107 Carbon Dioxide 22 Anion Gap 16 BUN 28 H Creatinine 1.0 Est GFR ( Amer) > 60 Est GFR (Non-Af Amer) > 60 Random Glucose 95 Calcium 7.8 L Phosphorus 3.6 Magnesium 2.0 Total Bilirubin 0.6 AST 23 ALT 31 Alkaline Phosphatase 77 Total Protein 6.2 L Albumin 3.4 L Globulin 2.8 Albumin/Globulin Ratio 1.2 Critical Care Progress Note - Nutrition Nutrition: Nutrition Category Date Time Status Heart Healthy Diet [DIET] Diets 12/28/17 Dinner Active Attending/Attestation - Attestation I have personally seen and examined this patient.: Yes I have fully participated in the care of the patient.: Yes I have reviewed all pertinent clinical information: Yes Notes (Text): 12/29/17 Today: , December 29, 2017 The Patient was seen and examined at the bedside, Medical records reviewed, and management issues were discussed and formulated with the house staff. I have reviewed all the relevant clinical, laboratory, hemodynamic, radiographic data and medications Events reviewed Pain issues, skin care, head of the bed elevation, glycemic control were addressed. Agree with above resident's assessment and treatment plans of care as transcribed in Dr. Owens note.
--- NOTE | 2017-12-29 22:05 | CP.PCM.CON ---
History of Present Illness - History of Present Illness History of Present Illness: EP note Re: hypotension, bradycardia Chart imaging and telemetry data was reviewed Patient was interviewed and examined 77 year old presented with chest pain inferior ST elevation OK, successful staged PCI of the right coronary artery and left anterior descending artery. Imaging studies showed normal LV systolic function. The AM got up in the morning and was sitting in his chair with his legs dangling for ~ 2 hours before his beakfast and suddenly felt dizzy diaphoretic and was noted to have systolic blood pressures of 70mmHg and sinus rhyhtm with heart rates ~55-60 beats per minute; he was taken back to his bed and resucitated with fluids and dopamine with return of normal rhythm and normal systemic pressures He denied chest pain dyspnea abdominal pain palpitations nausea vomiting; he does have constipation for the last three days. He had a similar episode in March 2017 while standing which he attributes it to tomusulosin for prostate hypertrophy Past surgery: appendectomy, prostatectomy, hernia repair on left side Allergies Penicillin Denied alcohol or drug use No family history of premature sudden deafness Exam: No distress afebrile Pulse 84 regular Normal venous pressures Normal carotids ?PMI Normal heart sounds intensity No murmurs Soft abdomen; no bruits Alert oriented EKG: sinus T wave abnormality Echo: normal LV systolic function; small LV cavity questionable systolic anterior motion of the anterior mitral leaflet Labs: reviewed Past Patient History - Past Medical History & Family History Past Medical History?: Yes - Past Social History Smoking Status: Former Smoker Alcohol: Other (denies) Drugs: Denies Home Situation {Lives}: With Family - CARDIAC Hx Hypercholesterolemia: Yes Hx Hypertension: Yes - PULMONARY Hx Respiratory Disorders: No - NEUROLOGICAL Hx Neurological Disorder: No HX Cerebrovascular Accident: Yes (09/22/16) Hx Syncope: Yes (more than 3 months ago) Other/Comment: CVA 09/22/16 - HEENT Hx HEENT Problems: No Hx Glaucoma: Yes - RENAL Hx Chronic Kidney Disease: No Hx Kidney Stones: Yes (20-30 years ago) - ENDOCRINE/METABOLIC Hx Endocrine Disorders: No - HEMATOLOGICAL/ONCOLOGICAL Hx Anemia: Yes Hx Human Immunodeficiency Virus (HIV): No - INTEGUMENTARY Hx Dermatological Problems: No - MUSCULOSKELETAL/RHEUMATOLOGICAL Hx Falls: Yes - GASTROINTESTINAL Hx Gastrointestinal Disorders: No Other/Comment: Hernia surgery 3-4 yrs ago - GENITOURINARY/GYNECOLOGICAL Hx Prostate Cancer: Yes - PSYCHIATRIC Hx Psychophysiologic Disorder: No Hx Substance Use: No - SURGICAL HISTORY Hx Appendectomy: Yes - ANESTHESIA Hx Anesthesia: Yes Hx Anesthesia Reactions: No Hx Malignant Hyperthermia: No Meds Allergies/Adverse Reactions: Allergies Allergy/AdvReac Type Severity Reaction Status Date / Time Penicillins Allergy HEADACHE Verified 12/26/17 16:00 - Medications Medications: Current Medications Acetaminophen (Tylenol 325mg Tab) 650 mg PO Q6 PRN PRN Reason: Pain, Mild (1-3) Aspirin (Ecotrin) 81 mg PO DAILY [facility] Last Admin: 12/29/17 11:50 Dose: 81 mg Clopidogrel Bisulfate (Plavix) 75 mg PO DAILY [facility] Last Admin: 12/29/17 11:50 Dose: 75 mg Docusate Sodium (Colace) 100 mg PO TID [facility] Last Admin: 12/29/17 17:13 Dose: 100 mg Famotidine (Pepcid) 20 mg PO DAILY [facility] Last Admin: 12/29/17 13:13 Dose: 20 mg Heparin Sodium (Porcine) (Heparin) 5,000 units SC Q8 [facility] Last Admin: 12/29/17 21:23 Dose: 5,000 units Dopamine HCl/Dextrose (Dopamine 400mg/250ml D5w) 400 mg in 250 mls @ 6.473 mls/ hr IV .Q24H PRN; Protocol; 2 MCG/KG/MIN PRN Reason: TITRATE PER MD ORDER Last Admin: 12/29/17 10:45 Dose: 3 mcg/kg/min, 9.709 mls/hr Rosuvastatin Calcium (Crestor) 20 mg PO HS [facility] Last Admin: 12/29/17 21:23 Dose: 20 mg Results - Vital Signs Recent Vital Signs: Last Vital Signs Temp 98.3 F 12/29/17 20:00 Pulse 78 12/29/17 20:39 Resp 19 12/29/17 20:39 BP 107/62 12/29/17 20:39 Pulse Ox 97 12/29/17 20:39 - Labs Result Diagrams: 12/29/17 05:54 12/29/17 05:54 Labs: Laboratory Results - last 24 hr 12/29/17 12/29/17 12/29/17 05:31 05:54 05:54 WBC 7.1 RBC 4.19 L Hgb 12.3 Hct 36.4 MCV 86.7 MCH 29.2 MCHC 33.7 RDW 15.3 H Plt Count 243 MPV 8.9 Neut % (Auto) 66.1 Lymph % (Auto) 19.5 L [place] % (Auto) 12.1 H Eos % (Auto) 1.9 Baso % (Auto) 0.4 Neut # (Auto) 4.7 Lymph # (Auto) 1.4 [place] # (Auto) 0.9 H Eos # (Auto) 0.1 Baso # (Auto) 0.0 Sodium 140 Potassium 4.4 Chloride 106 Carbon Dioxide 20 L Anion Gap 18 BUN 22 H Creatinine 1.1 Est GFR ( Amer) > 60 Est GFR (Non-Af Amer) > 60 POC Glucose (mg/dL) 137 H Random Glucose 130 H Calcium 8.6 Phosphorus 3.9 Magnesium 2.0 Total Bilirubin 0.9 AST 22 ALT 21 D Alkaline Phosphatase 85 Total Creatine Kinase CK-MB (Mass) Troponin I Total Protein 6.6 Albumin 3.7 Globulin 2.8 Albumin/Globulin Ratio 1.3 12/29/17 13:17 WBC RBC Hgb Hct MCV MCH MCHC RDW Plt Count MPV Neut % (Auto) Lymph % (Auto) [place] % (Auto) Eos % (Auto) Baso % (Auto) Neut # (Auto) Lymph # (Auto) [place] # (Auto) Eos # (Auto) Baso # (Auto) Sodium Potassium Chloride Carbon Dioxide Anion Gap BUN Creatinine Est GFR ( Amer) Est GFR (Non-Af Amer) POC Glucose (mg/dL) Random Glucose Calcium Phosphorus Magnesium Total Bilirubin AST ALT Alkaline Phosphatase Total Creatine Kinase 34 L CK-MB (Mass) 1.66 Troponin I 0.2380 H* Total Protein Albumin Globulin Albumin/Globulin Ratio Assessment & Plan - Assessment and Plan (Free Text) Assessment: Mr. Glover developed seemingly unprovoked hypotension relative bradycardia while sitting in a chair for a prolonged period prior to his breakfast; symptoms resolved in the supine posture and fluid replacement. There were no additional symptoms significant ST changes The mechanism of hypotension is unclear, circumstantial evidence suggests a sudden vasodilatory stress; the association with relative bradycardia suggests a neuro/vagal/reflex, although the trigger is intriguing; by exclusion would factor in relative dehydration and prolonged sitting (odd) and ?? carotid sinus hypersensitivity Doubt a sinus heart rate of >50 per se as a proximate trigger for hypotension; there is no suggestion of pulmonary embolism (although could elicit a vagal reflex) or obstructive cardiomyopathy not withstanding the anterior systolic motion of the mitral leaflet Ischemic sinus/AV teresa dysfunction and medications at best had a tangential supportive role. Plan DC dopamine Exclude PE Tilt table study Loop recorder implant Elastic stockings (jobst 20mmHg) Hydration and avoidance of prolonged sitting/standing and sudden movement and counter-pressure maneuvers Plan: See above
[2017-12-30 06:59] LABS: BASO % 0.3 % (0.0-2.0); EOS # 0.2 K/uL (0.0-0.7); EOS % 3.3 % (0.0-4.0); HEMOGLOBIN 10.8 g/dL (12.0-18.0); LYMPH # 0.8 K/uL (1.0-4.3); LYMPH % 13.3 % (20.0-40.0); MEAN CELL VOLUME 86.4 fL (80.0-94.0); MEAN CORPUSCULAR HEMOGLOBIN 29.5 pg (27.0-31.0); MEAN CORPUSCULAR HGB CONC 34.1 g/dL (33.0-37.0); MEAN PLATELET VOLUME 9.1 fL (7.2-11.7); MONO # 0.7 K/uL (0.0-0.8); MONO % 11.1 % (0.0-10.0); NEUT # 4.3 K/uL (1.8-7.0); NRBC % 0.2 % (0.0-2.0); RBC 3.66 Mil/uL (4.40-5.90); RED CELL DISTRIBUTION WIDTH 15.4 % (11.5-14.5)
[2017-12-30 07:02] LABS: ALB/GLOB RATIO 1.3 (1.0-2.1); ALBUMIN 3.5 g/dL (3.5-5.0); ALT/SGPT 26 U/L (21-72); AST/SGOT 18 U/L (17-59); BLOOD UREA NITROGEN 24 mg/dL (9-20); CALCIUM 8.3 mg/dl (8.6-10.4); GFR AFRICAN-AMERICAN > 60; GFR NON-AFRICAN AMERICAN 58
--- NOTE | 2017-12-30 09:41 | CP.CCUPN ---
<Yara Owens - Last Filed: 12/30/17 09:39> CCU Subjective - Physician Review Subjective (Free Text): Patient seen and examined at bedside. Patient reports he feels better today. Denied any dizziness, lightheadness. CCU Objective - Vital Signs / Intake & Output Vital Signs (Last 4 hours): Vital Signs Pulse Resp BP Pulse Ox 12/30/17 08:39 72 20 131/51 L 12/30/17 08:09 60 11 L 134/54 L 12/30/17 08:00 62 13 12/30/17 07:38 62 12 130/57 L 12/30/17 07:09 58 L 13 120/52 L 95 12/30/17 07:00 56 L 13 98 12/30/17 06:39 60 11 L 127/53 L 97 12/30/17 06:09 56 L 14 137/61 97 12/30/17 06:00 64 13 99 Intake and Output (Last 8hrs): Intake & Output 12/29/17 12/30/17 12/30/17 22:59 06:59 14:59 Intake Total 1016.9 109.6 0 Output Total 1250 1000 Balance -233.1 -890.4 0 Weight 190 lb Intake: IV 107 Intake, IV Amount 49.9 9.6 0 Right Antecubital 49.9 9.6 0 Oral 860 100 Output: Urine 1250 1000 Urine, Voided 1250 1000 Other: # Bowel Movements 1 - Physical Exam Head: Positive for: Atraumatic, Normocephalic, Ecchymosis Extroacular Muscles: Positive for: EOMI Conjunctiva: Positive for: Normal Mouth: Positive for: Moist Mucous Membranes Neck: Positive for: Normal Range of Motion Respiratory/Chest: Positive for: Clear to Auscultation Cardiovascular: Positive for: Regular Rate and Rhythm Abdomen: Positive for: Normal Bowel Sounds. Negative for: Tenderness, Distention Upper Extremity: Positive for: Normal Inspection, NORMAL PULSES, Neurovascularly Intact, Capillary Refill < 2s Lower Extremity: Positive for: Normal Inspection, NORMAL PULSES, Neurovascularly Intact, Capillary Refill < 2 s Neurological: Positive for: GCS=15, CN II-XII Intact Skin: Positive for: Warm, Dry Psychiatric: Positive for: Alert, Oriented x 3, Normal Concentration - Medications Active Medications: Active Medications Generic Name Dose Route Start Last Admin Trade Name Freq PRN Reason Stop Dose Admin Acetaminophen 650 mg 12/27/17 07:34 Tylenol 325mg Tab PO Q6 PRN Pain, Mild (1-3) Aspirin 81 mg 12/27/17 11:30 12/29/17 11:50 Ecotrin PO 81 mg DAILY SHIRA Administration Clopidogrel Bisulfate 75 mg 12/28/17 10:00 12/29/17 11:50 Plavix PO 75 mg DAILY SHIRA Administration Docusate Sodium 100 mg 12/28/17 18:00 12/29/17 17:13 Colace PO 100 mg TID SHIRA Administration Dorzolamide HCl 1 ml 12/30/17 10:00 Trusopt OU BID SHIRA Famotidine 20 mg 12/27/17 10:00 12/29/17 13:13 Pepcid PO 20 mg DAILY SHIRA Administration Heparin Sodium (Porcine) 5,000 units 12/27/17 14:00 12/30/17 05:35 Heparin SC 5,000 units Q8 SHIRA Administration Rosuvastatin Calcium 20 mg 12/26/17 22:00 12/29/17 21:23 Crestor PO 20 mg HS SHIRA Administration - Patient Studies Lab Studies: Lab Studies 12/30/17 12/30/17 12/29/17 Range/Units 06:40 06:39 13:17 WBC 6.0 (4.8-10.8) K/uL RBC 3.66 L (4.40-5.90) Mil/uL Hgb 10.8 L (12.0-18.0) g/dL Hct 31.6 L (35.0-51.0) % MCV 86.4 (80.0-94.0) fL MCH 29.5 (27.0-31.0) pg MCHC 34.1 (33.0-37.0) g/dL RDW 15.4 H (11.5-14.5) % Plt Count 168 (130-400) K/uL MPV 9.1 (7.2-11.7) fL Neut % (Auto) 72.0 (50.0-75.0) % Lymph % (Auto) 13.3 L (20.0-40.0) % Vance % (Auto) 11.1 H (0.0-10.0) % Eos % (Auto) 3.3 (0.0-4.0) % Baso % (Auto) 0.3 (0.0-2.0) % Neut # (Auto) 4.3 (1.8-7.0) K/uL Lymph # (Auto) 0.8 L (1.0-4.3) K/uL Vance # (Auto) 0.7 (0.0-0.8) K/uL Eos # (Auto) 0.2 (0.0-0.7) K/uL Baso # (Auto) 0.0 (0.0-0.2) K/uL Sodium 141 (132-148) mmol/L Potassium 4.1 (3.6-5.2) mmol/L Chloride 107 (98-107) mmol/L Carbon Dioxide 25 (22-30) mmol/L Anion Gap 13 (10-20) BUN 24 H (9-20) mg/dL Creatinine 1.2 (0.8-1.5) mg/dL Est GFR ( Amer) > 60 Est GFR (Non-Af Amer) 58 Random Glucose 106 (75-110) mg/dL Calcium 8.3 L (8.6-10.4) mg/dl Phosphorus 3.3 (2.5-4.5) mg/dL Magnesium 2.0 (1.6-2.3) mg/dL Total Bilirubin 0.6 (0.2-1.3) mg/dL AST 18 (17-59) U/L ALT 26 (21-72) U/L Alkaline Phosphatase 83 (38-126) U/L Total Creatine Kinase 34 L (55-170) U/L CK-MB (Mass) 1.66 (0.0-3.38) ng/mL Troponin I 0.2380 H* (0.00-0.120) ng/mL Total Protein 6.1 L (6.3-8.3) g/dL Albumin 3.5 (3.5-5.0) g/dL Globulin 2.6 (2.2-3.9) gm/dL Albumin/Globulin Ratio 1.3 (1.0-2.1) Laboratory Results - last 24 hr 12/29/17 12/30/17 12/30/17 13:17 06:39 06:40 WBC 6.0 RBC 3.66 L Hgb 10.8 L Hct 31.6 L MCV 86.4 MCH 29.5 MCHC 34.1 RDW 15.4 H Plt Count 168 MPV 9.1 Neut % (Auto) 72.0 Lymph % (Auto) 13.3 L Vance % (Auto) 11.1 H Eos % (Auto) 3.3 Baso % (Auto) 0.3 Neut # (Auto) 4.3 Lymph # (Auto) 0.8 L Vance # (Auto) 0.7 Eos # (Auto) 0.2 Baso # (Auto) 0.0 Sodium 141 Potassium 4.1 Chloride 107 Carbon Dioxide 25 Anion Gap 13 BUN 24 H Creatinine 1.2 Est GFR ( Amer) > 60 Est GFR (Non-Af Amer) 58 Random Glucose 106 Calcium 8.3 L Phosphorus 3.3 Magnesium 2.0 Total Bilirubin 0.6 AST 18 ALT 26 Alkaline Phosphatase 83 Total Creatine Kinase 34 L CK-MB (Mass) 1.66 Troponin I 0.2380 H* Total Protein 6.1 L Albumin 3.5 Globulin 2.6 Albumin/Globulin Ratio 1.3 EKG/Cardiology Studies: Cardiology / EKG Studies 12/29/17 09:31 EKG [ELECTROCARDIOGRAM] Routine Comment: Mode Of Transportation: Reason For Exam: s/p pci x 3 12/30/17 07:42 EKG [ELECTROCARDIOGRAM] Routine Comment: Mode Of Transportation: Reason For Exam: eval post PCI Critical Care Progress Note - Nutrition Nutrition: Nutrition Category Date Time Status Heart Healthy Diet [DIET] Diets 12/28/17 Dinner Active Assessment/Plan - Assessment and Plan (Free Text) Assessment: This is a 77 year old male with PMHx of HTN, CVA with residual weakness, h/o syncopal episodes while on beta heriberto, h/o prostate cancer on 3 month cystoscopy, presented to the [place] ER with c/o chest pain, with improved initially then got worse, repeat EKG showed inferior STEMI s/p RCA ARABELLA stent placement 12/27. Patient also has LAD and Left Circumflex disease, s/p PCI placement in [place] on 12/28/17. Had a symptomatic hypotensive episode 12/29/17 where his SBP dropped to 60s/40s. Patient was bolused total 1 L and started on Dopamine drip. EP consulted for possible SSS? - Recommends tilt table test and loop recorder - Will speak to Dr. Troncoso Plan: Neuro: GCS 15 A: Hx CVA with residual weakness - No briliinta 2/2 to hx CVA Cardio: A: Symptomatic Hypotension -- Dr. Sorto consulted - SBP dropped to 60s/40s - Patient was bolused total 1 L and started on Dopamine drip 12/29 - EP consulted for possible SSS? - Recommend tilt table test, loop recorder - Will speak to Dr. Troncoso A: STEMI, inferior wall -- Dr. Troncoso - S/P PCI placement 100% RCA 12/27, with LAD and Left circumflex disease - ECHO: LVH, LVEF >70% - Patient is s/p PCI intervention with ARABELLA in LAD and Left Circumflex 12/28/17 - Started ASA, Plavix, Crestor, HELD Coreg, Metoprolol 2/2 hypotension Pulm: - No acute issues GI: - No acute issues : A: Hx Prostate Cancer Optho: A: Hx Glaucoma - Restarted Trusopt Prophylaxis: - Pepcid - SCDs, Hep Q8H - PT Eval Disposition: Patient is transferred to Telemetry. DW Yara Grant DO, PGY-1 <Steve Ravi - Last Filed: 12/31/17 14:01> CCU Objective - Vital Signs / Intake & Output Vital Signs (Last 4 hours): Vital Signs Temp Pulse Resp BP Pulse Ox 12/31/17 12:09 73 13 130/60 98 12/31/17 12:00 98.6 F 69 14 145/77 99 12/31/17 11:09 68 12 133/49 L 100 12/31/17 10:39 68 14 130/51 L 98 Intake and Output (Last 8hrs): Intake & Output 12/30/17 12/31/17 12/31/17 22:59 06:59 14:59 Intake Total 270 300 Output Total 400 800 Balance -130 -500 Weight 191 lb Intake: Oral 270 300 Output: Urine 400 800 Urine, Voided 400 800 - Medications Active Medications: Active Medications Generic Name Dose Route Start Last Admin Trade Name Freq PRN Reason Stop Dose Admin Acetaminophen 650 mg 12/27/17 07:34 Tylenol 325mg Tab PO Q6 PRN Pain, Mild (1-3) Aspirin 81 mg 12/27/17 11:30 06/23/18 09:28 Ecotrin PO 81 mg DAILY SHIRA Administration Clopidogrel Bisulfate 75 mg 12/28/17 10:00 12/31/17 09:28 Plavix PO 75 mg DAILY SHIRA Administration Docusate Sodium 100 mg 12/28/17 18:00 12/31/17 09:28 Colace PO 100 mg TID SHIRA Administration Dorzolamide HCl 0 ml 12/30/17 10:00 12/31/17 09:28 Trusopt OU 1 drop BID SHIRA Administration Famotidine 20 mg 12/27/17 10:00 12/31/17 09:28 Pepcid PO 20 mg DAILY SHIRA Administration Heparin Sodium (Porcine) 5,000 units 12/27/17 14:00 12/31/17 05:36 Heparin SC 5,000 units Q8 SHIRA Administration Rosuvastatin Calcium 20 mg 12/26/17 22:00 12/30/17 21:45 Crestor PO 20 mg HS SHIRA Administration - Patient Studies Lab Studies: Lab Studies 12/31/17 12/31/17 Range/Units 06:30 06:30 WBC 5.0 (4.8-10.8) K/uL RBC 3.60 L (4.40-5.90) Mil/uL Hgb 10.5 L (12.0-18.0) g/dL Hct 31.2 L (35.0-51.0) % MCV 86.8 (80.0-94.0) fL MCH 29.2 (27.0-31.0) pg MCHC 33.7 (33.0-37.0) g/dL RDW 15.6 H (11.5-14.5) % Plt Count 181 (130-400) K/uL MPV 9.2 (7.2-11.7) fL Neut % (Auto) 62.6 (50.0-75.0) % Lymph % (Auto) 18.5 L (20.0-40.0) % Vance % (Auto) 12.7 H (0.0-10.0) % Eos % (Auto) 5.6 H (0.0-4.0) % Baso % (Auto) 0.6 (0.0-2.0) % Neut # (Auto) 3.1 (1.8-7.0) K/uL Lymph # (Auto) 0.9 L (1.0-4.3) K/uL Vance # (Auto) 0.6 (0.0-0.8) K/uL Eos # (Auto) 0.3 (0.0-0.7) K/uL Baso # (Auto) 0.0 (0.0-0.2) K/uL Sodium 141 (132-148) mmol/L Potassium 4.1 (3.6-5.2) mmol/L Chloride 107 (98-107) mmol/L Carbon Dioxide 22 (22-30) mmol/L Anion Gap 16 (10-20) BUN 28 H (9-20) mg/dL Creatinine 1.0 (0.8-1.5) mg/dL Est GFR ( Amer) > 60 Est GFR (Non-Af Amer) > 60 Random Glucose 95 (75-110) mg/dL Calcium 7.8 L (8.6-10.4) mg/dl Phosphorus 3.6 (2.5-4.5) mg/dL Magnesium 2.0 (1.6-2.3) mg/dL Total Bilirubin 0.6 (0.2-1.3) mg/dL AST 23 (17-59) U/L ALT 31 (21-72) U/L Alkaline Phosphatase 77 (38-126) U/L Total Protein 6.2 L (6.3-8.3) g/dL Albumin 3.4 L (3.5-5.0) g/dL Globulin 2.8 (2.2-3.9) gm/dL Albumin/Globulin Ratio 1.2 (1.0-2.1) Laboratory Results - last 24 hr 12/31/17 12/31/17 06:30 06:30 WBC 5.0 RBC 3.60 L Hgb 10.5 L Hct 31.2 L MCV 86.8 MCH 29.2 MCHC 33.7 RDW 15.6 H Plt Count 181 MPV 9.2 Neut % (Auto) 62.6 Lymph % (Auto) 18.5 L Vance % (Auto) 12.7 H Eos % (Auto) 5.6 H Baso % (Auto) 0.6 Neut # (Auto) 3.1 Lymph # (Auto) 0.9 L Vance # (Auto) 0.6 Eos # (Auto) 0.3 Baso # (Auto) 0.0 Sodium 141 Potassium 4.1 Chloride 107 Carbon Dioxide 22 Anion Gap 16 BUN 28 H Creatinine 1.0 Est GFR ( Amer) > 60 Est GFR (Non-Af Amer) > 60 Random Glucose 95 Calcium 7.8 L Phosphorus 3.6 Magnesium 2.0 Total Bilirubin 0.6 AST 23 ALT 31 Alkaline Phosphatase 77 Total Protein 6.2 L Albumin 3.4 L Globulin 2.8 Albumin/Globulin Ratio 1.2 Critical Care Progress Note - Nutrition Nutrition: Nutrition Category Date Time Status Heart Healthy Diet [DIET] Diets 12/28/17 Dinner Active Assessment/Plan - Assessment and Plan (Free Text) Plan: Patient seen and examined at bedside. Patient with h/o CAD admitted to ICU for hypotension. Now off dopamine, not on pressors, Bp remains stable. Above note documents my clinical findings and management. -Patient remains hemodynamically stable. - Date & Time Date: 12/30/17 Time: 19:00
[2017-12-30] MEDS: Dorzolamide 2% Opht Sol 10ml OU SCH ×2 (10:38→18:02)
--- NOTE | 2017-12-30 14:05 | RAD ---
HISTORY: eval lungs COMPARISON: No prior. FINDINGS: LUNGS: The lungs are well inflated. There is mild pulmonary venous congestion. No focal consolidation. PLEURA: No significant pleural effusion identified, no pneumothorax apparent. CARDIOVASCULAR: Mild cardiomegaly. OSSEOUS STRUCTURES: No significant abnormalities. VISUALIZED UPPER ABDOMEN: Normal. OTHER FINDINGS: None. IMPRESSION: Mild cardiomegaly and pulmonary venous congestion. No active pulmonary disease.
--- NOTE | 2017-12-30 17:18 | CP.PCM.PN ---
Subjective - Date & Time of Evaluation Date of Evaluation: 12/30/17 Time of Evaluation: 17:18 - Subjective Subjective: Patient improving. Hold beta blockers. Continue present rx. Will follow cardiology consult Objective - Vital Signs/Intake and Output Vital Signs (last 24 hours): Temp Pulse Resp BP Pulse Ox 98.5 F 74 22 144/66 99 12/30/17 16:00 12/30/17 17:00 12/30/17 17:00 12/30/17 16:39 12/30/17 17:00 Intake and Output: 12/30/17 12/30/17 11:59 23:59 Intake Total 366.4 240 Output Total 1200 200 Balance -833.6 40 - Medications Medications: Current Medications Acetaminophen (Tylenol 325mg Tab) 650 mg PO Q6 PRN PRN Reason: Pain, Mild (1-3) Aspirin (Ecotrin) 81 mg PO DAILY [facility] Last Admin: 12/30/17 10:21 Dose: 81 mg Clopidogrel Bisulfate (Plavix) 75 mg PO DAILY [facility] Last Admin: 12/30/17 10:19 Dose: 75 mg Docusate Sodium (Colace) 100 mg PO TID [facility] Last Admin: 12/30/17 14:16 Dose: 100 mg Dorzolamide HCl (Trusopt) 0 ml OU BID [facility] Last Admin: 12/30/17 10:38 Dose: 1 drop Famotidine (Pepcid) 20 mg PO DAILY [facility] Last Admin: 12/30/17 10:19 Dose: 20 mg Heparin Sodium (Porcine) (Heparin) 5,000 units SC Q8 [facility] Last Admin: 12/30/17 14:16 Dose: 5,000 units Rosuvastatin Calcium (Crestor) 20 mg PO HS [facility] Last Admin: 12/29/17 21:23 Dose: 20 mg - Labs Labs: 12/30/17 06:39 12/30/17 06:40 - Constitutional Appears: Chronically Ill - Head Exam Head Exam: ATRAUMATIC, NORMAL INSPECTION, NORMOCEPHALIC - Eye Exam Eye Exam: Normal appearance - Neck Exam Neck Exam: Full ROM - Respiratory Exam Respiratory Exam: Clear to Ausculation Bilateral - Cardiovascular Exam Cardiovascular Exam: REGULAR RHYTHM, +S1, +S2 - GI/Abdominal Exam GI & Abdominal Exam: Soft, Normal Bowel Sounds - Extremities Exam Extremities Exam: Normal Inspection - Neurological Exam Neurological Exam: Alert, Awake, CN II-XII Intact, Oriented x3 - Psychiatric Exam Psychiatric exam: Normal Affect - Skin Skin Exam: Normal Color Assessment and Plan (1) Coronary arteriosclerosis Status: Acute (2) STEMI (ST elevation myocardial infarction) Status: Acute (3) Hypertension Status: Acute (4) Combined hyperlipidemia Status: Acute (5) Bradycardia Status: Acute (6) Hypotension Status: Acute - Assessment and Plan (Free Text) Plan: As above
--- NOTE | 2017-12-30 18:31 | CP.PCM.PN ---
Subjective - Date & Time of Evaluation Date of Evaluation: 12/30/17 Time of Evaluation: 18:28 - Subjective Subjective: No new episodes of dizziness or weakness. Feeling OK. Objective - Vital Signs/Intake and Output Vital Signs (last 24 hours): Temp Pulse Resp BP Pulse Ox 98.5 F 74 22 144/66 99 12/30/17 16:00 12/30/17 17:00 12/30/17 17:00 12/30/17 16:39 12/30/17 17:00 Intake and Output: 12/30/17 12/30/17 06:59 18:59 Intake Total 736.4 600 Output Total 1600 400 Balance -863.6 200 - Medications Medications: Current Medications Acetaminophen (Tylenol 325mg Tab) 650 mg PO Q6 PRN PRN Reason: Pain, Mild (1-3) Aspirin (Ecotrin) 81 mg PO DAILY [facility] Last Admin: 12/30/17 10:21 Dose: 81 mg Clopidogrel Bisulfate (Plavix) 75 mg PO DAILY [facility] Last Admin: 12/30/17 10:19 Dose: 75 mg Docusate Sodium (Colace) 100 mg PO TID [facility] Last Admin: 12/30/17 18:02 Dose: 100 mg Dorzolamide HCl (Trusopt) 0 ml OU BID [facility] Last Admin: 12/30/17 18:02 Dose: 1 drop Famotidine (Pepcid) 20 mg PO DAILY [facility] Last Admin: 12/30/17 10:19 Dose: 20 mg Heparin Sodium (Porcine) (Heparin) 5,000 units SC Q8 [facility] Last Admin: 12/30/17 14:16 Dose: 5,000 units Rosuvastatin Calcium (Crestor) 20 mg PO HS [facility] Last Admin: 12/29/17 21:23 Dose: 20 mg - Labs Labs: 12/30/17 06:39 12/30/17 06:40 - Head Exam Head Exam: NORMAL INSPECTION - Neck Exam Neck Exam: Normal Inspection - Respiratory Exam Respiratory Exam: NORMAL BREATHING PATTERN - Cardiovascular Exam Cardiovascular Exam: REGULAR RHYTHM - Extremities Exam Extremities Exam: Normal Inspection - Neurological Exam Neurological Exam: Alert, Normal Gait, Oriented x3 Assessment and Plan (1) Combined hyperlipidemia Status: Acute (2) STEMI (ST elevation myocardial infarction) Assessment & Plan: No new episodes of chest pain or SOB. Continue DAPT. Status: Acute (3) Cerebrovascular accident Status: Acute (4) Bradycardia Assessment & Plan: No new episodes. Case discussed with EP. Status: Acute (5) Hypertension Status: Acute (6) Low BP Assessment & Plan: No new episodes. May Transfer to telemetry. discussed with son. Plnas will be finalized after discussing with family for hypotension and bradycardia. Discussed with SON and patient. Status: Acute
--- NOTE | 2017-12-30 22:48 | CARD ---
APPROVED REPORT EKG Measurement Heart [id number] [place] [id number] <Conclusion> Normal sinus rhythm T wave abnormality, consider inferior ischemia Abnormal ECG
--- NOTE | 2017-12-30 22:55 | CARD ---
APPROVED REPORT EKG Measurement Heart [id number] <Conclusion> Normal sinus rhythm T wave abnormality, consider inferior ischemia Abnormal ECG
[2017-12-31 06:42] LABS: BASO % 0.6 % (0.0-2.0); EOS # 0.3 K/uL (0.0-0.7); EOS % 5.6 % (0.0-4.0); HEMOGLOBIN 10.5 g/dL (12.0-18.0); LYMPH # 0.9 K/uL (1.0-4.3); LYMPH % 18.5 % (20.0-40.0); MEAN CELL VOLUME 86.8 fL (80.0-94.0); MEAN CORPUSCULAR HEMOGLOBIN 29.2 pg (27.0-31.0); MEAN CORPUSCULAR HGB CONC 33.7 g/dL (33.0-37.0); MEAN PLATELET VOLUME 9.2 fL (7.2-11.7); MONO # 0.6 K/uL (0.0-0.8); MONO % 12.7 % (0.0-10.0); NEUT # 3.1 K/uL (1.8-7.0); NEUT % 62.6 % (50.0-75.0); RBC 3.6 Mil/uL (4.40-5.90); RED CELL DISTRIBUTION WIDTH 15.6 % (11.5-14.5)
[2017-12-31 06:59] LABS: ALB/GLOB RATIO 1.2 (1.0-2.1); ALBUMIN 3.4 g/dL (3.5-5.0); ALT/SGPT 31 U/L (21-72); AST/SGOT 23 U/L (17-59); BLOOD UREA NITROGEN 28 mg/dL (9-20); CALCIUM 7.8 mg/dl (8.6-10.4); GFR AFRICAN-AMERICAN > 60; GFR NON-AFRICAN AMERICAN > 60
--- NOTE | 2017-12-31 09:16 | CP.PCM.PN ---
Objective - Vital Signs/Intake and Output Vital Signs (last 24 hours): Temp Pulse Resp BP Pulse Ox 98.7 F 68 13 132/53 L 97 12/31/17 00:00 12/31/17 07:09 12/31/17 07:09 12/31/17 07:09 12/31/17 02:39 Intake and Output: 12/31/17 12/31/17 06:59 18:59 Intake Total 300 Output Total 800 Balance -500 - Medications Medications: Current Medications Acetaminophen (Tylenol 325mg Tab) 650 mg PO Q6 PRN PRN Reason: Pain, Mild (1-3) Aspirin (Ecotrin) 81 mg PO DAILY [facility] Last Admin: 12/30/17 10:21 Dose: 81 mg Clopidogrel Bisulfate (Plavix) 75 mg PO DAILY [facility] Last Admin: 12/30/17 10:19 Dose: 75 mg Docusate Sodium (Colace) 100 mg PO TID [facility] Last Admin: 12/30/17 18:02 Dose: 100 mg Dorzolamide HCl (Trusopt) 0 ml OU BID [facility] Last Admin: 12/30/17 18:02 Dose: 1 drop Famotidine (Pepcid) 20 mg PO DAILY [facility] Last Admin: 12/30/17 10:19 Dose: 20 mg Heparin Sodium (Porcine) (Heparin) 5,000 units SC Q8 [facility] Last Admin: 12/31/17 05:36 Dose: 5,000 units Rosuvastatin Calcium (Crestor) 20 mg PO HS [facility] Last Admin: 12/30/17 21:45 Dose: 20 mg - Labs Labs: 12/31/17 06:30 12/31/17 06:30 - Constitutional Appears: Well, No Acute Distress - Head Exam Head Exam: ATRAUMATIC, NORMAL INSPECTION - Eye Exam Eye Exam: EOMI Pupil Exam: PERRL - ENT Exam ENT Exam: Mucous Membranes Moist - Respiratory Exam Respiratory Exam: Clear to Ausculation Bilateral, NORMAL BREATHING PATTERN. absent: Rales, Rhonchi, Wheezes - Cardiovascular Exam Cardiovascular Exam: REGULAR RHYTHM, +S1, +S2. absent: Bradycardia, Tachycardia , JVD, Murmur - GI/Abdominal Exam GI & Abdominal Exam: Soft, Normal Bowel Sounds. absent: Tenderness - Extremities Exam Extremities Exam: Full ROM, Normal Capillary Refill, Normal Inspection. absent : Tenderness - Neurological Exam Neurological Exam: Alert, Awake, Oriented x3 - Psychiatric Exam Psychiatric exam: Normal Affect, Normal Mood - Skin Skin Exam: Dry, Intact, Normal Color, Warm Assessment and Plan - Assessment and Plan (Free Text) Assessment: This is a 77 year old male with PMHx of HTN, CVA with residual weakness, h/o syncopal episodes while on beta heriberto, h/o prostate cancer s/p prostatectomy, presented to the [place] ER with c/o chest pain, with improved initially then got worse, repeat EKG showed inferior STEMI s/p RCA ARABELLA stent placement 12/27. Patient also has LAD and Left Circumflex disease, s/p PCI placement in [place] on 12/28/17. Had a symptomatic hypotensive episode 12/29/17 where his SBP dropped to 60s/40s. Patient was bolused total 1 L and started on Dopamine drip (which has been discontinued). EP consulted for possible SSS? - Recommends tilt table test and loop recorder - Will speak to Dr. Troncoso Plan: STEMI, inferior wall -- Dr. Troncoso - S/P PCI placement 100% RCA 12/27, with LAD and Left circumflex disease - ECHO: LVH, LVEF >70% - Patient is s/p PCI intervention with ARABELLA in LAD and Left Circumflex 12/28/17 - Started ASA, Plavix, Crestor, HELD Coreg, Metoprolol 2/2 hypotension Symptomatic Hypotension -- Dr. Sorto consulted * Recommend tilt table test, loop recorder, Elastic stockings (jobst 20mmHg) - SBP dropped to 60s/40s - Patient was bolused total 1 L and started on Dopamine drip started 12/29 discontinued 12/29 Hx CVA with residual weakness - No briliinta 2/2 to hx CVA Hx Glaucoma - Restarted Trusopt Prophylaxis: - Pepcid - SCDs, Hep Q8H - PT Eval Disposition: Patient is transferred to Telemetry.
[2017-12-31] MEDS: Dorzolamide 2% Opht Sol 10ml OU SCH (09:28)
[2017-12-31 13:08] VITALS: O2SAT 98
[2017-12-31 13:18] VITALS: TEMP 98.6
--- NOTE | 2017-12-31 14:14 | CP.PCM.PN ---
Subjective - Date & Time of Evaluation Date of Evaluation: 12/31/17 Time of Evaluation: 14:12 - Subjective Subjective: No chest pain or shortness of breath. No new episodes of dizziness or low BP. Objective - Vital Signs/Intake and Output Vital Signs (last 24 hours): Temp Pulse Resp BP Pulse Ox 98.6 F 73 13 130/60 98 12/31/17 12:00 12/31/17 12:09 12/31/17 12:09 12/31/17 12:09 12/31/17 12:09 Intake and Output: 12/31/17 12/31/17 06:59 18:59 Intake Total 300 Output Total 800 Balance -500 - Medications Medications: Current Medications Acetaminophen (Tylenol 325mg Tab) 650 mg PO Q6 PRN PRN Reason: Pain, Mild (1-3) Aspirin (Ecotrin) 81 mg PO DAILY [facility] Last Admin: 12/31/17 09:28 Dose: 81 mg Clopidogrel Bisulfate (Plavix) 75 mg PO DAILY [facility] Last Admin: 12/31/17 09:28 Dose: 75 mg Docusate Sodium (Colace) 100 mg PO TID [facility] Last Admin: 12/31/17 09:28 Dose: 100 mg Dorzolamide HCl (Trusopt) 0 ml OU BID [facility] Last Admin: 12/31/17 09:28 Dose: 1 drop Famotidine (Pepcid) 20 mg PO DAILY [facility] Last Admin: 12/31/17 09:28 Dose: 20 mg Heparin Sodium (Porcine) (Heparin) 5,000 units SC Q8 [facility] Last Admin: 12/31/17 05:36 Dose: 5,000 units Rosuvastatin Calcium (Crestor) 20 mg PO HS [facility] Last Admin: 12/30/17 21:45 Dose: 20 mg - Labs Labs: 12/31/17 06:30 12/31/17 06:30 - Head Exam Head Exam: NORMOCEPHALIC - Neck Exam Neck Exam: Normal Inspection - Respiratory Exam Respiratory Exam: NORMAL BREATHING PATTERN - Cardiovascular Exam Cardiovascular Exam: REGULAR RHYTHM - Extremities Exam Extremities Exam: Normal Inspection Additional comments: Ecchymosis on the right groin. - Neurological Exam Neurological Exam: Alert, Oriented x3 Assessment and Plan (1) Combined hyperlipidemia Assessment & Plan: Continue current care. Status: Acute (2) STEMI (ST elevation myocardial infarction) Assessment & Plan: DAPT compliance. risk factor modification. Status: Acute (3) Cerebrovascular accident Status: Acute (4) Bradycardia Assessment & Plan: Loop recorder Tilt table as out patient. Pressure stockings before discharge. Discussed with Son and in detail. Discussed plan and medication with pressure stocking with the team. Status: Acute (5) Hypertension Status: Acute (6) Low BP Status: Acute
[2017-12-31] MEDS ORDERED: Pneumococcal 23-Valent Vaccine IM ONE (14:31)
--- NOTE | 2017-12-31 15:04 | CP.PCM.DIS ---
Provider - Provider Date of Admission: 12/26/17 21:08 Attending physician: Robert Randolph MD Primary care physician: PMD: Dr Randolph Consults: EP: Dr Sorto Cardio: Dr Troncoso Time Spent in preparation of Discharge (in minutes): 44 Diagnosis - Discharge Diagnosis (1) Hypotension Status: Resolved Priority: High (2) STEMI (ST elevation myocardial infarction) Status: Resolved Priority: High (3) Bradycardia Status: Resolved Priority: High Hospital Course - Lab Results Lab Results: Micro Results 12/26/17 22:28 Naris MRSA Culture (Admit) - Final MRSA NOT DETECTED Most Recent Lab Values WBC 5.0 K/uL (4.8-10.8) 12/31/17 06:30 RBC 3.60 Mil/uL (4.40-5.90) L 12/31/17 06:30 Hgb 10.5 g/dL (12.0-18.0) L 12/31/17 06:30 Hct 31.2 % (35.0-51.0) L 12/31/17 06:30 MCV 86.8 fL (80.0-94.0) 12/31/17 06:30 MCH 29.2 pg (27.0-31.0) 12/31/17 06:30 MCHC 33.7 g/dL (33.0-37.0) 12/31/17 06:30 RDW 15.6 % (11.5-14.5) H 12/31/17 06:30 Plt Count 181 K/uL (130-400) 12/31/17 06:30 MPV 9.2 fL (7.2-11.7) 12/31/17 06:30 Neut % (Auto) 62.6 % (50.0-75.0) 12/31/17 06:30 Lymph % (Auto) 18.5 % (20.0-40.0) L 12/31/17 06:30 [place] % (Auto) 12.7 % (0.0-10.0) H 12/31/17 06:30 Eos % (Auto) 5.6 % (0.0-4.0) H 12/31/17 06:30 Baso % (Auto) 0.6 % (0.0-2.0) 12/31/17 06:30 Neut # (Auto) 3.1 K/uL (1.8-7.0) 12/31/17 06:30 Lymph # (Auto) 0.9 K/uL (1.0-4.3) L 12/31/17 06:30 [place] # (Auto) 0.6 K/uL (0.0-0.8) 12/31/17 06:30 Eos # (Auto) 0.3 K/uL (0.0-0.7) 12/31/17 06:30 Baso # (Auto) 0.0 K/uL (0.0-0.2) 12/31/17 06:30 Sodium 141 mmol/L (132-148) 12/31/17 06:30 Potassium 4.1 mmol/L (3.6-5.2) 12/31/17 06:30 Chloride 107 mmol/L (98-107) 12/31/17 06:30 Carbon Dioxide 22 mmol/L (22-30) 12/31/17 06:30 Anion Gap 16 (10-20) 12/31/17 06:30 BUN 28 mg/dL (9-20) H 12/31/17 06:30 Creatinine 1.0 mg/dL (0.8-1.5) 12/31/17 06:30 Est GFR ( Amer) > 60 12/31/17 06:30 Est GFR (Non-Af Amer) > 60 12/31/17 06:30 POC Glucose (mg/dL) 137 mg/dL (65-110) H 12/29/17 05:31 Random Glucose 95 mg/dL (75-110) 12/31/17 06:30 Hemoglobin A1c 5.6 % (4.2-6.5) 12/27/17 06:24 Calcium 7.8 mg/dl (8.6-10.4) L 12/31/17 06:30 Phosphorus 3.6 mg/dL (2.5-4.5) 12/31/17 06:30 Magnesium 2.0 mg/dL (1.6-2.3) 12/31/17 06:30 Total Bilirubin 0.6 mg/dL (0.2-1.3) 12/31/17 06:30 AST 23 U/L (17-59) 12/31/17 06:30 ALT 31 U/L (21-72) 12/31/17 06:30 Alkaline Phosphatase 77 U/L (38-126) 12/31/17 06:30 Total Creatine Kinase 34 U/L (55-170) L 12/29/17 13:17 CK-MB (Mass) 1.66 ng/mL (0.0-3.38) 12/29/17 13:17 Troponin I 0.2380 ng/mL (0.00-0.120) H* 12/29/17 13:17 Total Protein 6.2 g/dL (6.3-8.3) L 12/31/17 06:30 Albumin 3.4 g/dL (3.5-5.0) L 12/31/17 06:30 Globulin 2.8 gm/dL (2.2-3.9) 12/31/17 06:30 Albumin/Globulin Ratio 1.2 (1.0-2.1) 12/31/17 06:30 Triglycerides 165 mg/dL (0-149) H 12/27/17 06:14 Cholesterol 122 mg/dL (0-199) 12/27/17 06:14 LDL Cholesterol Direct 74 mg/dL (0-129) 12/27/17 06:14 HDL Cholesterol 24 mg/dL (30-70) L 12/27/17 06:14 - Hospital Course Hospital Course: This is a 77 year old male with PMHx of HTN, CVA with residual weakness, h/o syncopal episodes while on beta heriberto, h/o prostate cancer s/p prostatectomy, presented to the [place] ER with c/o chest pain, with improved initially then got worse, repeat EKG showed inferior STEMI s/p RCA ARABELLA stent placement 12/27. Patient also has LAD and Left Circumflex disease, s/p PCI placement in [place] on 12/28/17. Had a symptomatic hypotensive episode 12/29/17 where his SBP dropped to 60s/40s. Patient was bolused total 1 L and started on Dopamine drip (which has been discontinued). EP consulted for possible SSS? - Recommends tilt table test and loop recorder - Will speak to Dr. Troncoso Plan: STEMI, inferior wall -- Dr. Troncoso - S/P PCI placement 100% RCA 12/27, with LAD and Left circumflex disease - ECHO: LVH, LVEF >70% - Patient is s/p PCI intervention with ARABELLA in LAD and Left Circumflex 12/28/17 - Started ASA, Plavix, Crestor, HELD Coreg, Metoprolol 2/2 hypotension Symptomatic Hypotension -- Dr. Sorto consulted * Recommend tilt table test, loop recorder, Elastic stockings (jobst 20mmHg) - SBP dropped to 60s/40s - Patient was bolused total 1 L and started on Dopamine drip started 12/29 discontinued 12/29 Hx CVA with residual weakness - No briliinta 2/2 to hx CVA Hx Glaucoma - Restarted Trusopt Prophylaxis: - Pepcid - SCDs, Hep Q8H - PT Eval Discharge Exam - Head Exam Head Exam: NORMOCEPHALIC - Additional Findings Additional findings: - Constitutional Appears: Well, No Acute Distress - Head Exam Head Exam: ATRAUMATIC, NORMAL INSPECTION - Eye Exam Eye Exam: EOMI Pupil Exam: PERRL - ENT Exam ENT Exam: Mucous Membranes Moist - Respiratory Exam Respiratory Exam: Clear to Ausculation Bilateral, NORMAL BREATHING PATTERN. absent: Rales, Rhonchi, Wheezes - Cardiovascular Exam Cardiovascular Exam: REGULAR RHYTHM, +S1, +S2. absent: Bradycardia, Tachycardia , JVD, Murmur - GI/Abdominal Exam GI & Abdominal Exam: Soft, Normal Bowel Sounds. absent: Tenderness - Extremities Exam Extremities Exam: Full ROM, Normal Capillary Refill, Normal Inspection. absent : Tenderness - Neurological Exam Neurological Exam: Alert, Awake, Oriented x3 - Psychiatric Exam Psychiatric exam: Normal Affect, Normal Mood - Skin Skin Exam: Dry, Intact, Normal Color, Warm Discharge Plan - Discharge Medications Prescriptions: Aspirin [Ecotrin] 81 mg PO DAILY #30 tabec Atorvastatin [Lipitor] 20 mg PO DAILY #30 tab Clopidogrel [Plavix] 75 mg PO DAILY #30 tab Dorzolamide 2% [Trusopt 2% Ocumeter Plus] 1 ea OP BID #1 bottle Ferrous Sulfate [Feosol] 325 mg PO Q12 #60 tab Finasteride [Proscar] 5 mg PO HS #30 tab Folic Acid 1 mg PO DAILY #30 tab Ramipril [Altace] 5 mg PO DAILY #30 cap Thiamine [Vitamin B1 Tab] 100 mg PO DAILY #30 tab - Follow Up Plan Condition: GOOD Disposition: HOME/ ROUTINE Instructions: Heart Attack (DC), Tilt Table Test, How to Put On and Take Off Compression Stockings, Lower Body Dressing Aids Additional Instructions: You are medically stable for discharge. Prescriptions for the following medications were electronically sent over to your pharmacy at [facility] [address] [facility]: 1. Thiamine 100mg take 1 tablet with breakfast 2. Ramipril 5mg take 1 tablet with breakfast 3. Folic Acid 1mg take 1 tablet with breakfast 4. Finasteride 5mg take 1 tablet with breakfast 5. Ferrous sulfate 325mg take 1 tablet with breakfast and 1 tablet with dinner 6. Plavix 75mg take 1 tablet with breakfast 7. Atorvastatin 20mg take 1 table before bedtime 8. Aspirin 81mg take 1 tablet before bedtime 9. Dorzolamide [Trusopt] 1 drop twice a day (please note this is a change from your previous eyedrops as your previous eyedrops have a side-effect of lowering your heart rate) The following hand written scripts will be given to you: 1. Rx for Tilt table test (take this to a seed analyst) 2. Rx for Loop recorder implant (take this to a seed analyst) 3. Rx for elastic stockings jobst 20mgHg (a pharmacy should be able to fill this Rx) Please follow-up with your primary medical doctor, Dr Randolph and review these medications with him in 1 week. Please get in touch with a seed analyst and see him/her in 1 week. A referral has been provided however you may choose your own. If symptoms return, please go to your nearest emergency department. Referrals: Robert Randolph MD [Family Provider] - Sarah Sorto MD [Staff Provider] -
[2017-12-31 16:14] VITALS: BP 143/63; PULSE 75; RESP 16
== END 2017-12-31 16:33 | disposition home or self-care (01) | DRG 247 ==
LOC: C.SDS 19:48 → C.9I 21:08
PROVIDERS: ADMIT Internal Medicine; ATTEND Internal Medicine
PROC: 027034Z Dilation of Coronary Artery, One Artery with Drug-eluting Intraluminal Device, Percutaneous Approach (ICD-10-PCS; principal; 2017-12-26)
PROC: 4A023N7 Measurement of Cardiac Sampling and Pressure, Left Heart, Percutaneous Approach (ICD-10-PCS; 2017-12-26)
PROC: B211YZZ Fluoroscopy of Multiple Coronary Arteries using Other Contrast (ICD-10-PCS; 2017-12-26)
PROC: B215YZZ Fluoroscopy of Left Heart using Other Contrast (ICD-10-PCS; 2017-12-26)
DX: I21.19 ST elevation (STEMI) myocardial infarction involving other coronary artery of inferior wall (principal); I69.351 Hemiplegia and hemiparesis following cerebral infarction affecting right dominant side; E78.2 Mixed hyperlipidemia; I10 Essential (primary) hypertension; Z88.0 Allergy status to penicillin; Z95.5 Presence of coronary angioplasty implant and graft; I25.10 Atherosclerotic heart disease of native coronary artery without angina pectoris; Z87.891 Personal history of nicotine dependence; R00.1 Bradycardia, unspecified; I95.9 Hypotension, unspecified

== ENCOUNTER 2018-01-05 07:50 | Day surgery (SDC) | payer MEDICARE ==
[2018-01-04 09:08] VITALS: BMI 28.8
--- NOTE | 2018-01-05 14:57 | VASCLAB ---
PROCEDURE: HISTORY: Left groin pain, s/p cardiac catheterization. COMPARISON: None available. TECHNIQUE: FINDINGS: Velocities in the left groin are as follows: Common femoral artery 131 cm/s, profunda femoral artery 86 cm/s, and proximal superficial femoral artery 101 cm/s. The left common femoral, deep femoral and femoral veins are compressible. IMPRESSION: No evidence of pseudoaneurysm, hematoma or deep vein thrombosis in the left groin.
--- NOTE | 2018-01-05 23:28 | VASCLAB ---
DATE: 01/05/2018 LOOP RECORDER IMPLANT BRIEF CLINICAL HISTORY: The patient who is a 77-year-old male with history of coronary artery disease, NSTEMI, status post angioplasty of the circumflex and LAD, and multiple episodes of passing out, also had a head trauma in the past because of passing out. After discussion with the patient and the family, it was decided to have an EP evaluation who recommended to have a tilt table and loop recorder implantation. PROCEDURE TECHNIQUE: After obtaining the consent, the patient was prepared for the loop recorder implantation on the left side of the chest. The patient was given local anesthetics for the procedure. Under sterile condition, a small incision was made on the left side of the chest close to the nipple and the third intercostal space. A loop recorder was implanted under sterile condition. The wound was closed with Dermabond with Steri-Strip and the implants. The patient tolerated the procedure very well. Interrogation was done, which was satisfactory. PLAN: The patient will be discharged home today. He will follow up in our office, and workup will be done as an outpatient. Jin Troncoso MD
--- NOTE | 2018-01-06 05:12 | VASCLAB ---
DATE: 01/05/2018 BRIEF CLINICAL HISTORY: The patient is a 77-years old male with a history of NSTEMI, status post angioplasty and stenting of the circumflex and LAD. During his admission at the hospital, the patient had an episode of hypotension with bradycardia. As per the patient's family, the patient also had another two episodes before prior to the admission over the period of 6 to 8 months. Given the patient's age, it was realized that the patient may have been hypotensive because of inadequate venous return. The patient was put on pressure stocking and since then has been feeling better. The patient was brought in today for the tilt-table test. PROCEDURE: Tilt-table test. The patient was placed on the tilt table, and the patient was monitored for more than 20 minutes. There was no significant change in the blood pressure and his heart rate. Given the monitoring for more than 20 minutes, most likely it was not associated with the judson. Most likely, it was related to hypotension. The tilt table is negative. The patient will be continued on the pressure stocking, and he will be having a loop recorder placed as to rule out any probable judson or tachyarrhythmia. Jin Troncoso MD
== END 2018-01-05 13:50 | disposition home or self-care (01) ==
LOC: C.CATHLAB 07:50
PROVIDERS: ATTEND Internal Medicine
DX: R42 Dizziness and giddiness (principal); R10.32 Left lower quadrant pain
CPT/HCPCS: 33282; 93660; 93926; C1764